=== PATIENT | female | born 1935 | race Caucasian/White ===

== ENCOUNTER 2024-09-09 14:52 | Outpatient (OUT) | payer MEDICARE, SELFPAY ==
--- NOTE | 2024-09-09 17:41 | PM.WCHP ---
Wound Care H&P: HPI History of Present Illness Narrative: The patient is a pleasant 88-year-old female who presents for routine nail care and callus management. The patient has several painful calluses on both feet that limit her ability to ambulate. The patient states she likes to go barefoot around the house. She does not have history of diabetes and has never smoked. Exam Narrative: Exam Narrative: Derm: Dry scab on the right lower leg measuring 1.4 x 0.5 cm. It is surrounded by a dry patch of flaky skin and hemosiderin staining. Skin is diffusely dry. Toenails 1 through 10 are elongated, thickened, and mycotic. Callus formation noted on both third toes at the tips and on the left forefoot. Vascular: Left PT pulses nonpalpable. The right PT pulse is faintly palpable. DP pulses are 1/4 bilaterally. Capillary refill is brisk. Digital hair is absent. Neuro: Monofilament testing revealed absent sensation in 5/5 tested areas on each foot. Vibratory sensation is absent. Achilles deep tendon reflexes are absent bilaterally. MSK: Fat pad atrophy noted bilaterally. No gross deformity otherwise. Assessment and Plan Assessment and Plan (1) Tinea unguium: (2) Diminished pulses in lower extremity: Plan The patient is a pleasant 88-year-old female who presents for routine nail and callus care. She had several calluses on her feet that were pared with a 15 blade without incident. She noted pain relief immediately. Toenails 1 through 10 were sharply debrided with nail nippers without incident. Physical examination is consistent with peripheral neuropathy. She also has a chronic wound on the right lower leg. She was encouraged to use Medihoney and dry sterile dressing. She will follow-up in the wound center in 2 to 3 weeks. Acute Procedures Podiatry Nail Debridement Class B Findings Absent posterior tibial pulse: left Advanced trophic changes as evidenced by any three of the following: decreased hair growth, nail changes (thickening), pigmentary changes (discoloring) and skin texture (thin or shiny) Class C Findings Claudication: No Temperature changes: No Edema: Yes Nail debridement paresthesia (abnormal spontaneous sensations in the feet): No Burning: No Qualifies If: Qualifiers If:: A patient qualifies for nail debridement if they have: 1 class A finding (Q7) 2 class B findings (Q8) OR 1 class B & 2 class C findings in addition to a primary condition (Q9) Nail Procedure Nail Procedure Time out: Yes Nail procedure: other (Nail debridement 1 through 10) Number of affected nails: 10 Location (toes): left and right Procedure successful: Yes Patient tolerated procedure: well and no complications Additional comments: Toenails 1 through 10 were sharply debrided with nail nippers without incident. Calluses on the tips of the third toes bilaterally were pared with a 15 blade and dermal curette without incident. 2 calluses on the left plantar forefoot were pared with a 15 blade and dermal curette without incident.
== END 2024-09-09 14:53 | disposition home or self-care (01) ==
LOC: WC 14:53
PROVIDERS: PCP Family Medicine; Visit Provider Physician Assistant
DX: B35.1 Tinea unguium (principal); R09.89 Other specified symptoms and signs involving the circulatory and respiratory systems; L84 Corns and callosities
CPT/HCPCS: 11056; 11720; 11721

== ENCOUNTER 2024-12-16 13:45 | Outpatient (OUT) | payer MEDICARE, SELFPAY ==
--- NOTE | 2024-12-16 14:34 | P.WCHP_ITS ---
Wound Care H&P: HPI History of Present Illness Narrative: The patient is a pleasant 89-year-old female who presents for routine nail care and callus management. The patient has several painful calluses on both feet that limit her ability to ambulate. The patient states she likes to go barefoot around the house. She does not have history of diabetes and has never smoked. Exam Narrative: Exam Narrative: Derm: Skin is diffusely dry. Toenails 1 through 10 are elongated, thickened, and mycotic. Callus formation noted on both third toes at the tips and on the left forefoot. Hemosiderin staining noted on BLE. Vascular: Left PT pulses nonpalpable. The right PT pulse is faintly palpable. DP pulses are 1/4 bilaterally. Capillary refill is brisk. Digital hair is absent. Neuro: Monofilament testing revealed absent sensation in 5/5 tested areas on each foot. Vibratory sensation is absent. Achilles deep tendon reflexes are absent bilaterally. MSK: Fat pad atrophy noted bilaterally. No gross deformity otherwise. Assessment and Plan Assessment and Plan (1) Tinea unguium: (2) Diminished pulses in lower extremity: Plan The patient is a pleasant 89-year-old female who presents for routine nail and callus care. Calluses on the tips of bilateral 3rd toes were pared with a d ermal curette.. She noted pain relief immediately. Toenails 1 through 10 were sharply debrided with nail nippers without incident. Physical examination is consistent with peripheral neuropathy. Acute Procedures Podiatry Nail Debridement Class B Findings Absent posterior tibial pulse: left Advanced trophic changes as evidenced by any three of the following: decreased hair growth, nail changes (thickening), pigmentary changes (discoloring) and skin texture (thin or shiny) Class C Findings Claudication: No Temperature changes: No Edema: Yes Nail debridement paresthesia (abnormal spontaneous sensations in the feet): No Burning: No Qualifies If: Qualifiers If:: A patient qualifies for nail debridement if they have: 1 class A finding (Q7) 2 class B findings (Q8) OR 1 class B & 2 class C findings in addition to a primary condition (Q9) Nail Procedure Nail Procedure Time out: Yes Nail procedure: other (Nail debridement 1 through 10) Number of affected nails: 10 Location (toes): left and right Procedure successful: Yes Patient tolerated procedure: well and no complications Additional comments: Toenails 1 through 10 were sharply debrided with nail nippers without incident. Calluses on the tips of the third toes bilaterally were pared with a dermal curette without incident.
== END 2024-12-16 13:46 | disposition home or self-care (01) ==
LOC: WC 13:46
PROVIDERS: PCP Family Medicine; Visit Provider Physician Assistant
DX: B35.1 Tinea unguium (principal); R29.898 Other symptoms and signs involving the musculoskeletal system; L60.2 Onychogryphosis; L84 Corns and callosities
CPT/HCPCS: 11721

== ENCOUNTER 2025-02-15 13:51 | Outpatient (OUT) | payer MEDICARE, SELFPAY ==
--- OUTSIDE RECORDS SUMMARY | 2024-06-17 10:00 | XMS_ITS ---
Author Organization The [facility] in [place] Address [address] [place] [address] Care Team Providers Care Hand Marker Name Role Phone None, Unknown or Primary Care Provider Unavailab Cat Santillan Unavailable [phone] REASON FOR VISIT NAIL CARE Encounters Encounter Location Date Provider Diagnosis [facility] (PODIATRY) [address] [place] [address] [place] [address] 06/17/2024 Cat Larsen Plan Of Treatment No Information Progress Notes * Kelsie RICODOB:1935 (89 yo F)Acc No.[id number]:06/17/2024 UNLOCKED PROGRESS NOTE Nurse Visit Patient: Kelsie FRANCO Provider: Eden Larsen PA-C :1935 A ge:88 Y S ex:Female Date:06/17/2024 [facility] Pcp:Unknown or None Check In:01:52 PM ESTCheck O ut:02:31 PM EST Subjective: * Chief Complaints: * 1 . NAIL CARE. * Medical History: Objective: * Vitals: Assessment: Plan: * Treatment: * * Electronic signature of Ivory Larsen PA-C on 02/15/2025 at 01:56 PM EDT Sign off status: Pending Visit Status: C HK (Check Out) * Provider: Eden Larsen PA-C Date: 0 06/17/2024 Generated for Printi ng/Faxing/eTransmitting on: 1 01:56 PM EDT
--- OUTSIDE RECORDS SUMMARY | 2025-02-15 13:56 | XMS_ITS | Encounter Summary ---
Author Organization [facility] Address [id number] [place] [address] Care Team Providers Care Shirt Ironer Supervisor Name Role Phone Meagan Arreaga MD Primary Care Provider [phone] Reason for Visit * Reason Onset Date Comments prefers attending 12/22/2023 Encounter Details Date Type Department Care Team ([facility] Contact Info) Description 12/22[facility]20[facility] [address] [place] [address] Marie Cardenas prefers attending Social History Tobacco Use Types Packs/Day Years Used Date Smoking Tobacco: Never Smokeless Tobacco: Never Alcohol Use Standard Drinks/Week Comments Yes 0 (1 standard drink = 0.6 oz pur e alcohol) one drink twice a week AUDIT-C Answer Date Recorded Frequency of Alcohol Consumption Never 10/22/2018 Average Number of Drinks Not on file 019 Frequency of Binge Drinking Not on file 10/04 Childcare Answer Date Recorded Childcare Unknown 10/14/2018 Employment Answer Date Recorded Employment Unknown 10/14/2018 Hunger Screening Answer Date Recorded Within the past 12 months we worried whether our food would run out before we got money to buy more. Never True 10/18/2023 Within the past 12 months th e food we bought just didn't last and we didn't have money to get more. Never True 10/18/2023 Purpose - Life Answer Date Recorded Purpose and direction in life Unknown Comments No Sex and Gender Information Value Date Recorded Sex Assigned at Not on file Legal Sex Female 11:51 AM EDT Gender Identity Not on file Sexual Orientation Not on file documented as of this encounter Miscellaneous Notes * Telephone Encounter - Marie Cardenas - 12/22/2023 3:37 PM EDT Patient would like to be seen by Dr. De León and not Luis Armando Sorto documented in this encounter Plan of Treatment Upcoming Encounters Date Type Department Care Team (Late st Contact Info) Description 03/07/2025 1:30 PM EST Office Visit [facility] [address] [place] [address] Arabella Garcia, IRONWORKER WIRE FENCE ERECTOR-DIAMOND FINISHING SUPERVISOR [address] [place] [id number] Glory Sy PA-C [address] [place] [address] documented as of this encounter Visit Diagnoses Not on filedocumented in this encounter Additional Health Concerns Infection Onset Date Last Indicated Resolved Time COVID-19 Rule-Out 04/26/2024 04/26/2024 04/26/2024 6:32 PM EST documented as of this encounter Care Teams Shirt Ironer Supervisor Relationship Specialty Start Date End Date Meagan Arreaga MD [address] [place], [place] [id number] PCP - General Family Medicine 10/22/18 documented as of this encounter
--- OUTSIDE RECORDS SUMMARY | 2025-02-15 13:56 | XMS_ITS | Encounter Summary ---
Author Organization [facility] Address [address] [place] [place] [address] Care Team Providers Care Fiber Designer Name Role Phone Meagan Arreaga MD Primary Care Provider [phone] Michelle Alonso FIELD SALES SPECIALIST Unavailable [phone] Michelle Alonso FIELD SALES SPECIALIST Unavailable [phone] Encounter Details Date Type Department Care Team (Late st Contact Info) Description 11/13/2022 [facility] [address] [place] [address] Fede Smiley NP [address] [place] [address] Social History Tobacco Use Types Packs/Day Years Used Date Smoking Tobacco: Never Smokeless Tobacco: Never Tobacco Cessation:Counseling Given: Not Answered Alcohol Use Standard Drinks/Week Comments Not Currently 0 (1 standard drink = 0.6 oz pur e alcohol) caffeine: 1-2 cups per day Comments Unknown Sex and Gender Information Value Date Recorded Sex Assigned at Not on file Legal Sex Female 8:27 PM EDT Gender Identity Not on file Sexual Orientation Not on file documented as of this encounter Plan of Treatment Not on file documented as of this encounter Visit Diagnoses Not on filedocumented in this encounter Care Teams Fiber Designer Relationship Specialty Start Date End Date Meagan Arreaga MD [address] [place] [place] [address] PCP - General Family Medicine 09/20/22 Michelle Alonso NP [address] [place] [address] PCP - Ben EMERY 05/05/23 Michelle Alonso NP [address] [place], [place] [id number] Nurse Practitioner Family Medicine 09/20/22 documented as of this encounter
--- OUTSIDE RECORDS SUMMARY | 2025-02-15 13:56 | XMS_ITS | Encounter Summary ---
Author Organization [facility] Address [address] [facility] [place] [address] Care Team Providers Care Market Relationship Manager Name Role Phone Meagan Arreaga MD Primary Care Provider Michelle Alonso MANAGER WATER WASTEWATER Unavailable [phone] Michelle Alonso MANAGER WATER WASTEWATER Unavailable [phone] Encounter Details Date Type Department Care Team (Late st Contact Info) Description 10/04/2022 [facility] [address] [facility] [place] [address] Meagan Arreaga MD [address] [facility] [address] [place], [place] [id number] Social History Tobacco Use Types Packs/Day Years Used Date Smoking Tobacco: Never Assessed Comments Unknown Sex and Gender Information Value Date Recorded Sex Assigned at Not on file Legal Sex Female 8:27 PM EDT Gender Identity Not on file Sexual Orientation Not on file documented as of this encounter Plan of Treatment Not on file documented as of this encounter Visit Diagnoses Not on filedocumented in this encounter Care Teams Market Relationship Manager Relationship Specialty Start Date End Date Meagan Arreaga MD [address] [facility] [address] [place] [id number] PCP - General Family Medicine 09/20/22 Michelle Alonso NP [address] [place] [address] PCP - Ben EMERY 05/05/23 Michelle Alonso NP [address] [place], [place] [id number] Nurse Practitioner Family Medicine 09/20/22 documented as of this encounter
--- OUTSIDE RECORDS SUMMARY | 2025-02-15 13:56 | XMS_ITS | Encounter Summary ---
Author Organization [facility] Address [address] [facility] [place] [address] Care Team Providers Care Antenna Design Engineer Name Role Phone Meagan Arreaga MD Primary Care Provider [phone] Michelle Alonso OTORHINOLARYNGOLOGIST Unavailable [phone] Michelle Alonso OTORHINOLARYNGOLOGIST Unavailable [phone] Encounter Details Date Type Department Care Team (Late st Contact Info) Description 10/31/2022 [facility] [address] [place] [address] Meagan Arreaga MD [address] [place] [address] Social History Tobacco Use Types Packs/Day Years Used Date Smoking Tobacco: Never Smokeless Tobacco: Never Alcohol Use Standard Drinks/Week Comments Yes 0 (1 standard drink = 0.6 oz pur e alcohol) Comments Unknown Sex and Gender Information Value Date Recorded Sex Assigned at Not on file Legal Sex Female 8:27 PM EDT Gender Identity Not on file Sexual Orientation Not on file documented as of this encounter Plan of Treatment Not on file documented as of this encounter Visit Diagnoses Not on filedocumented in this encounter Care Teams Antenna Design Engineer Relationship Specialty Start Date End Date Meagan Arreaga MD [address] [place] [address] PCP - General Family Medicine 09/20/22 Michelle Alonso NP [address] [facility] [place] [address] PCP - Ben EMERY 05/05/23 Michelle Alonso NP [address] [facility] [place] [address] Nurse Practitioner Family Medicine 09/20/22 documented as of this encounter
--- OUTSIDE RECORDS SUMMARY | 2025-02-15 13:56 | XMS_ITS | Encounter Summary ---
Author Organization [facility] Address [address] [facility] [place] [address] Care Team Providers Care Documentation Engineer Name Role Phone Meagan Arreaga MD Primary Care Provider [phone] Michelle Alonso BIOMETRICS TECHNICIAN Unavailable [phone] Michelle Alonso BIOMETRICS TECHNICIAN Unavailable [phone] Encounter Details Date Type Department Care Team (Late st Contact Info) Description 10/10/2022 [facility] [address] [facility] [place] [address] Meagan Arreaga MD [address] [facility] [address] [place], [place] [phone] Social History Tobacco Use Types Packs/Day Years [...] on filedocumented in this encounter Care Teams Documentation Engineer Relationship Specialty Start Date End Date Meagan Arreaga MD [address] [facility] [address] [place] [id number] PCP - General Family Medicine 09/20/22 Michelle Alonso NP [address] [place] [address] PCP - Ben EMERY 05/05/23 Michelle Alonso NP [address] [place], [place] [phone] Nurse Practitioner Family Medicine 09/20/22 documented as of this encounter
--- OUTSIDE RECORDS SUMMARY | 2025-02-15 13:56 | XMS_ITS | Encounter Summary ---
Author Organization [facility] Address [address] [facility] [place] [address] Care Team Providers Care Utility Sales And Service Manager Name Role Phone Meagan Arreaga MD Primary Care Provider [phone] Michelle Alonso PEACE OFFICER Unavailable [phone] Michelle Alonso PEACE OFFICER Unavailable [phone] Encounter Details Date Type Department Care Team (Late st Contact Info) Description 11/01/2022 [facility] [address] [place] [address] Meagan Arreaga MD [address] [place] [address] Social History Tobacco Use Types Packs/Day [...] on filedocumented in this encounter Care Teams Utility Sales And Service Manager Relationship Specialty Start Date End Date Meagan Arreaga MD [address] [place] [address] PCP - General Family Medicine 09/20/22 Michelle Alonso NP [address] [facility] [place] [address] PCP - Ben EMERY 05/05/23 Michelle Alonso NP [address] [facility] [place] [address] Nurse Practitioner Family Medicine 09/20/22 documented as of this encounter
--- OUTSIDE RECORDS SUMMARY | 2025-02-15 13:56 | XMS_ITS | Encounter Summary ---
Author Organization [facility] Address [id number] [address] [place] [address] Care Team Providers Care Water Manager Name Role Phone Meagan Arreaga MD Primary Care Provider [phone] Reason for Referral * Diagnostic Imaging (Routine) - Closed Specialty Diagnoses / Procedures Referred By Contac t Referred To Contact Radiology Diagnoses Subdural hematoma ([facility]) Procedures CT brain with and without contrast Fredrick Jimenez MD [address] [place] [id number] Phone: tel: fax: [address] [phone] Phone: tel: Referral ID Status Reason Start Date Expiration Date Visits Re quested Visits Authorized [id number] Closed 02/06/2022 02/06/2023 1 1 Encounter Details Date Type Department Care Team (Late st Contact Info) Description 02/06/2022 Orders Only [facility] [address] [place] [phone] Bethany Glass, MATILDA Subdural hematoma (Primary Dx) Social History Tobacco Use Types Packs/Day Years [...] Employment Answer Date Recorded Employment Unknown 10/14/2018 Purpose - Life Answer Date Recorded Purpose and direction in life Unknown Comments No Sex and Gender Information Value Date Recorded Sex Assigned at Not on file Legal Sex Female 11:51 AM EDT Gender Identity Not on file Sexual Orientation Not on file documented as of this encounter Plan of Treatment Upcoming Encounters Date Type Department Care Team (Late st Contact Info) Description 03/07/2025 1:30 PM EST Office Visit [facility] [address] [place] [phone] Arabella Garcia, RESIDENTIAL PROPERTY CONSULTANT-WORLD DESIGNER [address] [place] [phone] Glory Sy PA-C [address] [place] [address] documented as of this encounter Results * CT brain with and without contrast (02/21/2022 1:46 PM EDT) Anatomical Region Laterality Modality Head, Head and Neck, Neuro Covera N/A Computed Tomography 02/22/2022 1:23 PM EDT Narrative 02/22/2022 1:29 PM EDT HISTORY: An 86-year-old female with the history of the left-sided subdural hematoma following fall in December 2021. Follow-up examination. EXAM/TECHNIQUE: Multidetector spiral CT scan of brain is performed without and with intravenous contrast administration.. Multiplanar reconstruction images are reformatted. COMPARISON: Comparison is made with CT scans of the brain of 12/24/2021 and 01/03/2022. FINDINGS: The ventricular system is normal in size and configuration for the patient's age. There is a mild degree of generalized atrophy. There is normal differentiation of peres and white matters. There is no evidence of recent intracranial hemorrhage or acute pathology. There is a encephalomalacia involving the right occipital lobe consistent with sequelae of the prior infarction, hemorrhage or infection. The cerebellum and brainstem are unremarkable.No evidence of mass effect or midline shift of the structure. There has been complete resolution of the left-sided subdural hematomas involving the parietal temporal lobes and parasagittal interhemispheric frontal region. No new hemorrhage is identified. Postcontrast examination reveals no evidence of abnormal enhancing pathology. Both internal carotid and vertebrobasilar arteries are patent. The calvarium is intact. The visualized paranasal sinuses and mastoid air cells are clear. IMPRESSION: 1. Interval complete resolution of left-sided subdural hematomas since prior study of December 2021. 2. 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 3. No evidence of recent intracranial hemorrhage or acute pathology. 4. No abnormal enhancing pathology seen. 5. Cortical atrophy. All CT scans at this facility use dose modulation, iterative reconstruction, and/or weight based dosing when appropriate to reduce radiation dose to as low as reasonably achievable. Finalized by Sahil aMrie MD on 02/22/2022 1:29 PM Procedure Note Sahil Marie MD - 02/22/2022 HISTORY: An 86-year-old female with the history of the left-sidedsubdural hematoma following fall in December 2021. Follow-up examination. EXAM/TECHNIQUE: Multidetector spiral CT scan of brain is performedwithout and with intravenous contrast administration.. Multiplanarreconstruction images are reformatted. COMPARISON: Comparison is made with CT scans of the brain of 12/24/2021nd 01/03/2022. FINDINGS: The ventricular system is normal in size and configuration forthe patient's age. There is a mild degree of generalized atrophy. Thereis normal differentiation of peres and white matters. There is no evidence of recent intracranial hemorrhage or acutepathology. There is a encephalomalacia involving the right occipital lobe consistentwith sequelae of the prior infarction, hemorrhage or infection. The cerebellum and brainstem are unremarkable.No evidence of mass effector midline shift of the structure. There has been complete resolution of the left-sided subdural hematomasinvolving the parietal temporal lobes and parasagittal interhemisphericfrontal region. No new hemorrhage is identified. Postcontrast examination reveals no evidence of abnormal enhancingpathology. Both internal carotid and vertebrobasilar arteries are patent. The calvarium is intact. The visualized paranasal sinuses and mastoid air cells are clear. IMPRESSION: 1. Interval complete resolution of left-sided subdural hematomas sinceprior study of December 2021. 2. 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 3. No evidence of recent intracranial hemorrhage or acute pathology. 4. No abnormal enhancing pathology seen. 5. Cortical atrophy. All CT scans at this facility use dose modulation, iterativereconstruction, and/or weight based dosing when appropriate to reduceradiation dose to as low as reasonably achievable. Finalized by Sahil Marie MD on 02/22/2022 1:29 PM us Fredrick Jimenez MD IMG CT ORDERABLES Final R esult documented in this encounter Visit Diagnoses Diagnosis Subdural hematoma (CMS-HCC)- Primary Subdural hemorrhage Subdural hematoma (CMS-HCC) Subdural hemorrhage documented in this encounter Additional Health Concerns Infection Onset Date Last Indicated Resolved Time COVID-19 Rule-Out 04/26/2024 04/26/2024 04/26/2024 6:32 PM EST documented as of this encounter Care Teams Water Manager Relationship Specialty Start Date End Date Meagan Arreaga MD [address] [place] [address] PCP - General Family Medicine 10/22/18 documented as of this encounter
--- OUTSIDE RECORDS SUMMARY | 2025-02-15 13:56 | XMS_ITS | Clinical Summary ---
Author Organization [employer] tem Address [facility] [id number] [address] [place] [address] Care Team Providers Care Community Service Officer Coordinator Name Role Phone Meagan Arreaga MD Primary Care Provider [phone] Allergies Active Allergy Reactions Criticality Noted Date Comments Sulfamethoxazole-Trimethoprim Nausea High 2018 Penicillins Hives High 11/02/2018 Medications escitalopram (LEXAPRO) 20 mg tablet Take 1 tablet (20 mg total) by mouth in the morning. Active cholecalciferol, vitamin D3, (VITAMIN D3) 25 mcg (1,000 unit) capsule Take 1 capsule (1,000 Units total) by mouth in the morning. Active acetaminophen (TYLENOL EXTRA STRENGTH) 500 mg tablet Take 1 tablet (500 mg total) by mouth every 6 (six) hours as needed for pain. 30 tablet 2 Active ferrous sulfate 325 (65 FE) mg tablet Take 1 tablet (325 mg total) by mouth in the morning and 1 tablet (325 mg total) in the evening. Take with meals. 60 tablet 2 3 Active aspirin 81 mg Take 1 tablet (81 mg total) by mouth in the morning. Active lisinopriL (PRINIVIL,ZESTRIL ) 10 mg tablet Take 1 tablet (10 mg total) by mouth in the morning. 30 tablet 1 4 Active busPIRone (BUSPAR) 5 mg tablet Take 1 tablet (5 mg total) by mouth in the morning and 1 tablet (5 mg total) before bedtime. Active FLUTICASONE PROPIONATE NASL Administer into each nostril. Active pseudoephedrine/a cetaminophen (SINUS HEADACHE DEGONGESTANT ORAL) Take by mouth. Activ e rosuvastatin (CRESTOR) 10 mg tablet Take 1 tablet (10 mg total) by mouth in the morning. Active vit A/vit C/vit E/zinc/copper (PRESERVISION AREDS ORAL) Take by mouth. Act abdias ascorbic acid, vitamin C, (VITAMIN C) 1000 mg tablet Take 1 tablet (1,000 mg total) by mouth in the morning. Active B complex-vitamin C-folic acid (NEPHROCAP) 1 mg capsule Take 1 capsule by mouth in the morning. Active lyucmyxg-mcuu-EV- calcium &mins (THERAGRAN-M) 9 mg iron-400 mcg tablet Take 1 tablet by mouth in the morning. Active coffee xt/phosphatidyl serine (NEURIVA ORIGINAL ORAL) Take by mouth. Active amLODIPine (NORVASC) 2.5 mg tablet Take 1 tablet (2.5 mg total) by mouth in the morning. 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 Take with meals. 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 Reyna. 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 Hypertension Resolved Problems Problem Noted Date Diagnosed Date Resolved Date Thrombocytopenia 04/27/2024 09/02/2024 Closed fracture of right hip , initial encounter 05/29/2022 05/31/2022 Chronic systolic congestive heart failure 05/10/2019 09/18/2022 STEMI (ST elevation myocardial infarction) 11/02/2018 09/02/2024 Encounters Date Type Department Care Team Description 11/21/2024 11:49 AM EDT - 11/21/2024 2:49 PM EDT Emergency [facility] - Emergency [address] [place] [address] Anoop Darling DO Dementia, unspecified dementia severity, unspecified dementia type, unspecified whether behavioral, psychotic, or mood disturbance or anxiety ([facility]) (Primary Dx) Discharge Disposition: Home 11/21/2024 Travel from Last 3 Months Immunizations Immunization Administration Dates Next Due Influenza High Dose Preservative Free IM 019 Influenza, High-dose, Quadrivalent 02/15/2021, Influenza, Injectable, quadrivalent (PF) 018 Pneumococcal Conjugate 13-Valent 04/24/2020 Pneumococcal Polysaccharide 04/16/2018 Td (adult), 5 Lf tetanus tox oid, preservative free, adsorbed 12/31/2018 Tdap 12/23/2021 Family History Medical History Relation Name Comments Kidney failure Father Heart disease Maternal Grandfather Tuberculosis Mother Relation Name Status Comments Father Maternal Grandfather Mother Social History Tobacco Use Types Packs/Day Years Used Date Smoking Tobacco: Never Smokeless Tobacco: Never Tobacco Cessation:Counseling Given: Not Answered Alcohol Use Standard Drinks/Week Comments Yes 0 (1 standard drink = 0.6 oz pur e alcohol) one drink twice a week [facility] Utilities Answer Date Recorded In the past 12 months has th e electric, gas, oil, or water company threatened to shut off services in your home? No 04/26/2024 AUDIT-C Answer Date Recorded Frequency of Alcohol Consumption Never 10/22/2018 Average Number of Drinks Not on file 06/20/2 019 Frequency of Binge Drinking Not on file 10/04 PRAPARE - Transportation Answer Date Re corded In the past 12 months, has l ack of transportation kept you from medical appointments or from getting medications? No 04/05 In the past 12 months, has l ack of transportation kept you from meetings, work, or from getting things needed for daily living? No 04/26/2024 Housing Instability Answer Date Recorde d Are you worried or concerned that in the next two months you may not have stable housing that you own, rent or stay in as a part of a household? No 04/26/2024 Childcare Answer Date Recorded Childcare Unknown 10/14/2018 Employment Answer Date Recorded Employment Unknown 10/14/2018 Hunger Screening Answer Date Recorded Within the past 12 months we worried whether our food would run out before we got money to buy more. Never True 11/21/2024 Within the past 12 months th e food we bought just didn't last and we didn't have money to get more. Never True 11/21/2024 Purpose - Life Answer Date Recorded Purpose and direction in life Unknown Comments No Sex and Gender Information Value Date Recorded Sex Assigned at Not on file Legal Sex Female 11:51 AM EDT Gender Identity Not on file Sexual Orientation Not on file Last Filed Vital Signs Vital Sign Reading Time Taken Comments Blood Pressure 169/89 11/21/2024 2:32 PM EDT Pulse 66 11/21/2024 11:56 AM EDT Temperature 36.6 C (97.9 F) 11/21/2024 11:56 AM EDT Respiratory Rate 18 11/21/2024 11:56 AM EDT Oxygen Saturation 100% 11/21/2024 2:15 PM EDT Inhaled Oxygen Concentration - - Weight 52.2 kg (115 lb) 11/21/2024 11:56 AM EDT Height 157.5 cm (5' 2 ) 11/21/2024 11:56 AM EDT Body Mass Index 21.03 11/21/2024 11:56 AM EDT Plan of Treatment Upcoming Encounters Date Type Department Care Team (Late st Contact Info) Description 03/07/2025 1:30 PM EST Office Visit [facility] [address] [place] [phone] Arabella Garcia, COUNTER HOP-INTERNATIONAL OPERATIONS MANAGER [address] [place] [phone] Glory Sy PA-C [address] [place] [address] Health Maintenance Due Date Last Done Comments Depression Screening 1947 Zoster (Shingles) Vaccine (1 of 2) 09/28/1985 Fall Risk Screening 09/28/2000 COVID-19 Vaccine (2023-2 5 season) 2025 04/14/2024, 02/18/2023, 08/15/2021, Additional history exists Influenza Vaccine 01/03/2025 01/14/2024, , 01/30/2022, Additional history exists Tobacco Screening 11/21/2025 11/21/2024 DTaP,Tdap and Td Vaccines (3 - Td or Tdap) 12/24/2031 12/23/2021, 12/31/2018 Goals Goal Patient Goal Type Associated Problems Recent Progress Patient-Stated? Author home per patient & her daughter Alma Leon Yes Varsha Ward LSW Note: Evaluation of progress towards goal: under assessment; goal of home going Medical Devices Implanted Type Area Human Relations Teacher Device Identifier Shelf Expiration Date Model / Serial / Lot Lens Iol Ultrasert 23.0d - [id number] - [id number] Implanted:Qty: 1 on 01/09/2023 by Jessica Rhodes MD at [facility] Lens Left: Eye [employer] 03/06/2025 [id number] 23.0 / [id number] / NA Lens Iol Ultrasert 23.0d - [id number] - [id number] Implanted:Qty: 1 on 01/30/2023 by Jessica Rhodes MD at [facility] Lens Right: Eye [employer] 04/22/2025 [id number] 23.0 / [id number] / NA Screw Bn 90mm 16mm 6.5mm 7.9mm 2.9mm St Slf Drl Cnn Hmsphr - Sna - [id number] Implanted:Qty: 1 on 05/29/2022 by Arpan Gallo DO at [facility] Screw Right: Hip [employer] 05/04/2030 [id number] / NA / NA Screw Bn 85mm 16mm 6.5mm 7.9mm 2.9mm St Slf Drl Cnn Hmsphr H - Sna - [id number] Implanted:Qty: 2 on 05/29/2022 by Arpan Gallo, DO at [facility] Screw Right: Hip [employer] 05/03/2030 208.412 / NA / NA Procedures Procedure Name Priority Date/Time Associated Diagnosis Comments POCT NURSING URINE MACROSCOPIC UA Routine 11/21/2024 1:37 PM EDT ER EXTRA URINE MARBLE STAT 11/21/2024 1:24 PM EDT ER EXTRA URINE CULTURE STAT 11/21/2024 1:24 PM EDT ER EXTRA URINE STAT 11/21/2024 1:24 PM EDT MAGNESIUM STAT 11/21/2024 12:52 PM EDT BASIC METABOLIC PANEL STAT 11/21/2024 12:52 PM EDT CBC WITH AUTO DIFFERENTIAL STAT 11/21/2024 12:52 PM EDT EXTRA TUBES BLUE TOP Routine 11/21/2024 12:51 PM EDT EXTRA TUBES Routine 11/21/2024 12:51 PM EDT from Last 3 Months Results * (ABNORMAL) POCT Nursing Urine Macroscopic UA (11/21/2024 1:37 PM EDT) POC Urine Specific Nora 1.015 1.010, 1.015, 1.020, 1.025 11/21/2024 1:29 PM EDT [facility] POC Urine Leukocyte Esterase Negative Negative 11/21/2024 1:29 PM EDT [facility] POC Urine Nitrite Negative Negative 11/21/2024 1:29 PM EDT [facility] POC Urine pH 7.0 5.0, 6.0, 6.5, 7.0, 7.5, 8.0, 8.5, 5.5 11/21/2024 1:29 PM EDT [facility] POC Urine Protein Negative Negative 11/21/2024 1:29 PM EDT [facility] POC Urine Glucose Negative Negative 11/21/2024 1:29 PM EDT [facility] POC Urine Ketones Negative Negative 11/21/2024 1:29 PM EDT [facility] POC Urine Urobilinogen 0.2 E.U./dL 11/21/2024 1:29 PM EDT [facility] POC Urine Bilirubin Negative Negative 11/21/2024 1:29 PM EDT [facility] POC Urine Blood/HGB Trace(A) Negative 11/21/2024 1:29 PM EDT [facility] Urine 11/21/2024 1:37 PM EDT 11/21/2024 1:29 PM EDT us Anoop Darling DO POINT OF CARE TEST ORDERABLES Final Result [facility] [address] [place] [address]. [place] [address], [place] * Extra Urine Trinidad (11/21/2024 1:24 PM EDT) Extra Tube Auto Resulted 11/21/2024 3:01 PM EDT [facility] Urine Urine specimen collection, clean catch / Unknown 11/21/2024 1:24 PM EDT 11/21/2024 1:55 PM EDT us Anoop Trager DO URINE ORDERABLES Final Result Performing Organization Address City/[facility]/ZIP Co de Phone Number [address] [place] [address], [place] * Extra Urine Culture (11/21/2024 1:24 PM EDT) Extra Tube Auto Resulted 11/21/2024 3:01 PM EDT [facility] Urine Urine specimen collection, clean catch / Unknown 11/21/2024 1:24 PM EDT 11/21/2024 1:55 PM EDT us Anoop Trager DO URINE ORDERABLES Final Result Performing Organization Address [facility] Co de Phone Number [address] [place] [address], [place] * Extra Urine (11/21/2024 1:24 PM EDT) Extra Tube Auto Resulted 11/21/2024 3:01 PM EDT [facility] Urine Urine specimen collection, clean catch / Unknown 11/21/2024 1:24 PM EDT 11/21/2024 1:55 PM EDT us Anoop Trager DO URINE ORDERABLES Final Result Performing Organization Address City[facility] Co de Phone Number [address] [place] [address], [place] * (ABNORMAL) CBC auto differential (11/21/2024 12:52 PM EDT) WBC 4.9 4 - 11 x10E9/L 11/21/2024 12:59 PM EDT [facility] RBC Count 4.48 3.8 - 5.2 X10E12/L 11/21/2024 12:59 PM EDT [facility] Hemoglobin 14.2 11.7 - 15.5 g/dL 11/21/2024 12:59 PM EDT [facility] Hematocrit 41.2 35 - 47 % 11/21/2024 12:59 PM EDT [facility] MCV 92 80 - 100 fL 11/21/2024 12:59 PM EDT [facility] MCH 31.8 27 - 34 pg 11/21/2024 12:59 PM EDT [facility] MCHC 34.5 32 - 36 g/dL 11/21/2024 12:59 PM EDT [facility] RDW 13.2 11.5 - 15 % 11/21/2024 12:59 PM EDT [facility] Platelet Count 148(L) 150 - 450 X10E9/L 11/21/2024 12:59 PM EDT [facility] MPV 7.8 7 - 12 fL 11/21/2024 12:59 PM EDT [facility] Neutrophils % 72.8 % 11/21/2024 12:59 PM EDT [facility] Lymphocytes % 14.6 % 11/21/2024 12:59 PM EDT [facility] Monocytes % 9.2 % 11/21/2024 12:59 PM EDT [facility] Eosinophils % 2.5 % 11/21/2024 12:59 PM EDT [facility] Basophils % 0.9 % 11/21/2024 12:59 PM EDT [facility] Neutrophils Absolute (A) 3.5 1.5 - 6.6 10*3/uL 11/21/2024 12:59 PM EDT [facility] Lymphocytes Absolute 0.7(L) 1.0 - 3.5 10*3/uL 11/21/2024 12:59 PM EDT [facility] Monocytes Absolute 0.4 0.0 - 0.9 10*3/uL 11/21/2024 12:59 PM EDT [facility] Eosinophils Absolute 0.1 0.0 - 0.4 10*3/uL 11/21/2024 12:59 PM EDT [facility] Basophils Absolute 0.0 0.0 - 0.2 10*3/uL 11/21/2024 12:59 PM EDT [facility] Differential Type AUTOMATED DIFFERENTIAL 11/21/2024 12:59 PM EDT [facility] Blood Venous blood / Unknown Venipuncture / Unknown 11/21/2024 12:52 PM EDT 11/21/2024 12:55 PM EDT [facility] LAB BLOOD ORDERABLES Final Res ult Performing Organization Address City/[facility]/ZIP Co de Phone Number [address] [place] [address], [place] * Magnesium (11/21/2024 12:52 PM EDT) MAGNESIUM 2.2 1.8 - 2.6 mg/dL 11/21/2024 1:15 PM EDT [facility] Blood Venous blood / Unknown Venipuncture / Unknown 11/21/2024 12:52 PM EDT 11/21/2024 12:55 PM EDT [facility] LAB BLOOD ORDERABLES Final Res ult Performing Organization Address [facility] Co de Phone Number [address] [place] [address], [place] * Basic Metabolic Panel (11/21/2024 12:52 PM EDT) SODIUM 143 134 - 146 mmol/L 11/21/2024 1:15 PM EDT [facility] POTASSIUM 4.1 3.5 - 5.0 mmol/L 11/21/2024 1:15 PM EDT [facility] CHLORIDE 109 98 - 109 mmol/L 11/21/2024 1:15 PM EDT [facility] CARBON DIOXIDE 26 22 - 32 mmol/L 11/21/2024 1:15 PM EDT [facility] ANION GAP 8 5 - 15 mmol/L 11/21/2024 1:15 PM EDT [facility] BLOOD UREA NITROGEN 14 5 - 27 mg/dL 11/21/2024 1:15 PM EDT [facility] CREATININE 0.53 0.40 - 1.00 mg/dL 11/21/2024 1:15 PM EDT [facility] Comment:METHOD TRACEABLE TO IDMS STANDARD GLUCOSE 92 65 - 99 mg/dL 11/21/2024 1:15 PM EDT [facility] CALCIUM 9.3 8.5 - 10.5 mg/dL 11/21/2024 1:15 PM EDT [facility] EGFR Non-Race Dependent 88 >=60 ml/min/1.7 3sq.m 11/21/2024 1:15 PM EDT [facility] Comment: eGFR not reported due to non-numeric value for Creatinine. Reported eGFR is based on the CKD-EPI 2020 equation that does not use a race coefficient. Blood Venous blood / Unknown Venipuncture / Unknown 11/21/2024 12:52 PM EDT 11/21/2024 12:55 PM EDT [employer] DO LAB BLOOD ORDERABLES Final Res ult Performing Organization Address City[facility]/ZIP Co de Phone Number [address] [place] [address], * Light Blue Top (11/21/2024 12:51 PM EDT) Extra Tube Auto Resulted 11/21/2024 2:01 PM EDT [facility] Blood Venous blood / Unknown 11/21/2024 12:51 PM EDT 11/21/2024 12:56 PM EDT [employer] LAB BLOOD ORDERABLES Final Res ult Performing Organization Address [facility]/ZIP Co de Phone Number [address] [place] [address], from Last 3 Months Insurance [facility] Advance Directives * Full Code (Latest Code Status on File) Date Activated Date Inactivated Comments 04/26/2024 8:37 PM 05/02/2024 3:40 PM * Full Code Date Activated Date Inactivated Comments 05/29/2022 2:38 PM 05/31/2022 7:58 PM * Full Code Date Activated Date Inactivated Comments 12/23/2021 6:37 PM 12/28/2021 1:00 AM Care Teams Community Service Officer Coordinator Relationship Specialty Start Date End Date Meagan Arreaga MD [address] [place] [place] [address] PCP - General Family Medicine 10/22/18
--- OUTSIDE RECORDS SUMMARY | 2025-02-15 13:56 | XMS_ITS | Encounter Summary ---
Author Organization [facility] Address [address] [facility] [place] [address] Care Team Providers Care Contracts Manager Name Role Phone Meagan Arreaga MD Primary Care Provider [phone] Michelle Alonso PROGRAM WRITER Unavailable [phone] Michelle Alonso PROGRAM WRITER Unavailable [phone] Encounter Details Date Type Department Care Team (Late st Contact Info) Description 10/10/2022 [facility] [address] [facility] [place] [address] Meagan Arreaga MD [address] [facility] [place] [place], [place] [id number] Social History Tobacco Use Types Packs/Day Years [...] on filedocumented in this encounter Care Teams Contracts Manager Relationship Specialty Start Date End Date Meagan Arreaga MD [address] [facility] [address] [place] [id number] PCP - General Family Medicine 09/20/22 Michelle Alonso NP [address] [place] [address] PCP - Ben EMERY 05/05/23 Michelle Alonso NP [address] [place], [place] [id number] Nurse Practitioner Family Medicine 09/20/22 documented as of this encounter
--- OUTSIDE RECORDS SUMMARY | 2025-02-15 13:57 | XMS_ITS | Encounter Summary ---
Author Organization [facility] tem Address [id number] [address] [place] [address] Care Team Providers Care Roller Painter Name Role Phone Meagan Arreaga MD Primary Care Provider [phone] Encounter Details Date Type Department Care Team (Late Contact Info) Description 10/12/2020 Telephone [facility] [address] [place] [phone] Stephanie Kate, RN Social History Tobacco Use Types Packs/Day Years Used Date Smoking Tobacco: Never Smokeless Tobacco: Never Alcohol Use Standard Drinks/Week Comments Yes 0 (1 standard drink = 0.6 oz pur e alcohol) AUDIT-C Answer Date Recorded Frequency of Alcohol [...] on file Sexual Orientation Not on file COVID-19 Exposure Response Date Recorded In the last month, have you been in contact with someone who was confirmed or suspected to have Coronavirus / COVID-19? No / Unsure 10/11/2020 1:05 PM EDT documented as of this encounter Plan of Treatment Upcoming Encounters Date Type Department Care Team (Late Contact Info) Description 03/07/2025 1:30 PM EST Office Visit [facility] [address] [place] [phone] Arabella Garcia, WALL TAPER HELPER-CHIEF EXECUTIVE OR MANAGING DIRECTOR [address] [place] [phone] Glory Sy PA-C [address] [place], [place] [id number] documented as of this encounter Visit Diagnoses Not on filedocumented in this encounter Additional Health Concerns Infection Onset Date Last Indicated Resolved Time COVID-19 Rule-Out 04/26/2024 04/26/2024 04/26/2024 6:32 PM EST documented as of this encounter Care Teams Roller Painter Relationship Specialty Start Date End Date Meagan Arreaga MD [address] [place] [address] PCP - General Family Medicine 10/22/18 documented as of this encounter
--- OUTSIDE RECORDS SUMMARY | 2025-02-15 13:57 | XMS_ITS | Encounter Summary ---
Author Organization [facility] tem Address [id number] [address] [place] [address] Care Team Providers Care Textile Knitter Name Role Phone Meagan Arreaga MD Primary Care Provider [phone] Encounter Details Date Type Department Care Team (Late Contact Info) Description 04/26/2020 Orders Only [facility] [address] [place] [address] External, Scanning Provider Social History Tobacco Use Types Packs/Day Years [...] Employment Answer Date Recorded Employment Unknown 10/14/2018 Comments No Sex and Gender Information Value [...] Cardiology [address] [place] [address] Arabella Garcia, RN RELIEF CHARGE-REHABILITATION WORKER [address] [place] [address] Glory Sy PA-C [address] [place] [address] documented as of this encounter Procedures Procedure Name Priority Date/Time Associated Diagnosis Comments LIPID PROFILE Routine 04/25/2020 documented in this encounter Results * Lipid profile (04/25/2020) External Cholesterol 118 MANUALLY TRANSCRIBED RESULTS External Cholesterol:Hdl 2 MANUALLY TRANSCRIBED RESULTS External Hdl Cholesterol 63 MANUALLY TRANSCRIBED RESULTS External Ldl (Calc) 41 MANUALLY TRANSCRIBED RESULTS External Triglycerides 70 MANUALLY TRANSCRIBED RESULTS External Very Low Lipoprotein 14 MANUALLY TRANSCRIBED RESULTS us Scanning Provider External LAB BLOOD ORDERABLES Edited Result - Final MANUALLY TRANSCRIBED RESULTS documented in this encounter Visit Diagnoses Not on filedocumented in this encounter Additional Health Concerns Infection Onset Date Last Indicated Resolved Time COVID-19 Rule-Out 04/26/2024 04/26/2024 04/26/2024 6:32 PM EST documented as of this encounter Care Teams Textile Knitter Relationship Specialty Start Date End Date Meagan Arreaga MD [address] [place] [address] PCP - General Family Medicine 10/22/18 documented as of this encounter
--- OUTSIDE RECORDS SUMMARY | 2025-02-15 13:57 | XMS_ITS | Encounter Summary ---
Author Organization [facility] tem Address [facility] [id number] [address] [place] [address] Care Team Providers Care City Council Member Name Role Phone Meagan Arreaga MD Primary Care Provider [phone] Encounter Details Date Type Department Care Team (Late Contact Info) Description 09/04/2021 Telephone [facility] [address] [place] [address] Stephanie Kate, RN Social History Tobacco Use [...] Exposure Response Date Recorded In the last 10 days, have yo u been in contact with someone who was confirmed or suspected to have Coronavirus/COVID-19? Unable to assess 09/07/2021 11:08 AM EDT documented as of this encounter Plan of Treatment Upcoming Encounters Date Type Department Care Team (Late Contact Info) Description 03/07/2025 1:30 PM EST Office Visit [facility] [address] [place] [phone] Arabella Garcia, FOOD SAFETY SPECIALIST-DIRECTOR OF EMERGENCY NURSING [address] [place] [address] Glory Sy PA-C [address] [place], [place] [address] documented as of this encounter Visit Diagnoses Not on filedocumented in this encounter Additional Health Concerns Infection Onset Date Last Indicated Resolved Time COVID-19 Rule-Out 04/26/2024 04/26/2024 04/26/2024 6:32 PM EST documented as of this encounter Care Teams City Council Member Relationship Specialty Start Date End Date Meagan Arreaga MD [address] [place] [address] PCP - General Family Medicine 10/22/18 documented as of this encounter
--- OUTSIDE RECORDS SUMMARY | 2025-02-15 13:57 | XMS_ITS | Encounter Summary ---
Author Organization [facility] tem Address [facility] [id number] [address] [place] [address] Care Team Providers Care Lead Refinery Supervisor Name Role Phone Meagan Arreaga MD Primary Care Provider [phone] Encounter Details Date Type Department Care Team (Late Contact Info) Description 09/17/2021 Telephone [facility] [address] [place] [address] Stephanie Kate, RN Social History Tobacco Use [...] was confirmed or suspected to have Coronavirus/COVID-19? No / Unsure 09/19/2021 10:36 AM EDT documented as of this encounter Plan of Treatment Upcoming Encounters Date Type Department Care Team (Late Contact Info) Description 03/07/2025 1:30 PM EST Office Visit [facility] [address] [place] [address] Arabella Garcia, EVENT SERVICES MANAGER-GREENS PLANTER [address] [place] [address] Glory Sy PA-C [address] [place], [place] [address] documented as of this encounter Visit Diagnoses Not on filedocumented in this encounter Additional Health Concerns Infection Onset Date Last Indicated Resolved Time COVID-19 Rule-Out 04/26/2024 04/26/2024 04/26/2024 6:32 PM EST documented as of this encounter Care Teams Lead Refinery Supervisor Relationship Specialty Start Date End Date Meagan Arreaga MD [address] [place] [address] PCP - General Family Medicine 10/22/18 documented as of this encounter
--- OUTSIDE RECORDS SUMMARY | 2025-02-15 13:57 | XMS_ITS | Encounter Summary ---
Author Organization [facility] tem Address [facility] [id number] [address] [place] [address] Care Team Providers Care Tubing Machine Tender Name Role Phone Meagan Arreaga MD Primary Care Provider [phone] Encounter Details Date Type Department Care Team (Late Contact Info) Description 09/07/2021 Telephone [facility] [address] [place] [address] Catalina Maldonado CNA Social History Tobacco Use Types Packs/Day Years [...] Cardiology [address] [place] [address] Arabella Garcia, CLOTH FINISHING RANGE OPERATOR CHIEF-MANGANESE HEATER [address] [place] [address] Glory Sy PA-C [address] [place], [place] [address] documented as of this encounter Visit Diagnoses Not on filedocumented in this encounter Additional Health Concerns Infection Onset Date Last Indicated Resolved Time COVID-19 Rule-Out 04/26/2024 04/26/2024 04/26/2024 6:32 PM EST documented as of this encounter Care Teams Tubing Machine Tender Relationship Specialty Start Date End Date Meagan Arreaga MD [address] [place] [address] PCP - General Family Medicine 10/22/18 documented as of this encounter
--- OUTSIDE RECORDS SUMMARY | 2025-02-15 13:57 | XMS_ITS | Encounter Summary ---
Author Organization [facility] Address [address] [facility] [place] [address] Care Team Providers Care Head Bone Grinder Name Role Phone Meagan Arreaga MD Primary Care Provider [phone] Michelle Alonso SUPERVISOR PASTE MIXING Unavailable Michelle Alonso SUPERVISOR PASTE MIXING Unavailable [phone] Reason for Visit * Reason Comments Med Refill Encounter Details Date Type Department Care Team (Late st Contact Info) Description 11/04/2023 Refill [facility] Family Medicine [address] [facility] [address] [facility] [address] Meagan Arreaga MD [address] [place] [address] Primary hypertension Social History Tobacco Use Types Packs/Day Years Used Date Smoking Tobacco: Never Smokeless Tobacco: Never Alcohol Use Standard Drinks/Week Comments Not Currently 0 (1 standard drink = 0.6 oz pur e alcohol) caffeine: 1 cups per day PHQ-2 Answer Date Recorded Patient Health Questionnaire-2 Score 1 06/27/2023 Comments Unknown Sex and Gender Information Value Date Recorded Sex Assigned at Not on file Legal Sex Female 8:27 PM EDT Gender Identity Not on file Sexual Orientation Not on file documented as of this encounter Plan of Treatment Not on file documented as of this encounter Visit Diagnoses Diagnosis Primary hypertension Unspecified essential hypertension documented in this encounter Additional Health Concerns Assessment Noted Time PHQ-9 Depression Total Score: 6 05/07/20 24 1:00 PM EDT documented as of this encounter Care Teams Head Bone Grinder Relationship Specialty Start Date End Date Meagan Arreaga MD [address] [place], [place] [id number] PCP - General Family Medicine 09/20/22 Michelle Alonso NP [address] [place], [place] [id number] PCP - Ben EMERY 05/05/23 Michelle Alonso NP [address] [place], [place] [phone] Nurse Practitioner Family Medicine 09/20/22 documented as of this encounter
--- OUTSIDE RECORDS SUMMARY | 2025-02-15 13:57 | XMS_ITS | Encounter Summary ---
Author Organization [facility] Address [address] [facility] [place] [address] Care Team Providers Care Human Resources Records Clerk Name Role Phone Meagan Arreaga MD Primary Care Provider [phone] Micehlle Alonso CONSTRUCTION MANAGEMENT INSTRUCTOR Unavailable [phone] Michelle Alonso CONSTRUCTION MANAGEMENT INSTRUCTOR Unavailable [phone] Encounter Details Date Type Department Care Team (Late st Contact Info) Description 09/03/2023 Abstract [facility] [address] [place] [address] Meagan Arreaga MD [address] [place] [address] Social History Tobacco Use Types Packs/Day Years Used Date Smoking Tobacco: Never Smokeless Tobacco: Never Alcohol Use Standard Drinks/Week Comments Not Currently 0 (1 standard drink = 0.6 oz pur e alcohol) caffeine: 1-2 cups per day PHQ-2 Answer Date Recorded [...] filedocumented in this encounter Additional Health Concerns Assessment Noted Time PHQ-9 Depression Total Score: 2 06/27/19 24 3:35 PM EST documented as of this encounter Care Teams Human Resources Records Clerk Relationship Specialty Start Date End Date Meagan Arreaga MD [address] [place], [place] [phone] PCP - General Family Medicine 09/20/22 Michelle Alonso NP [address] [facility], [place] [address] PCP - Ben EMERY 05/05/23 Michelle Alonso, ALIDA [address] [place], [place] [id number] Nurse Practitioner Family Medicine 09/20/22 documented as of this encounter
--- OUTSIDE RECORDS SUMMARY | 2025-02-15 13:57 | XMS_ITS | Encounter Summary ---
Author Organization [facility] tem Address [facility] [id number] [address] [place] [address] Care Team Providers Care Bread Wrapper Operator Name Role Phone Meagan Arreaga MD Primary Care Provider [phone] Encounter Details Date Type Department Care Team (Late Contact Info) Description 10/13/2020 Telephone [facility] [address] [place] [address] aJye Powell RN Social History Tobacco Use Types Packs/Day [...] Cardiology [address] [place] [address] Arabella Garcia, HARDWARE ENGINEERING MANAGER-LEADERSHIP RECRUITER [address] [place] [address] Glory Sy PA-C [address] [place] [address] documented as of this encounter Visit Diagnoses Not on filedocumented in this encounter Additional Health Concerns Infection Onset Date Last Indicated Resolved Time COVID-19 Rule-Out 04/26/2024 04/26/2024 04/26/2024 6:32 PM EST documented as of this encounter Care Teams Bread Wrapper Operator Relationship Specialty Start Date End Date Meagan Arreaga MD [address] [place] [address] PCP - General Family Medicine 10/22/18 documented as of this encounter
--- OUTSIDE RECORDS SUMMARY | 2025-02-15 13:57 | XMS_ITS | Encounter Summary ---
Author Organization [facility] tem Address [facility] [id number] [address] [place] [address] Care Team Providers Care Interior Design Director Name Role Phone Meagan Arreaga MD Primary Care Provider [phone] Encounter Details Date Type Department Care Team (Late Contact Info) Description 10/05/2020 Telephone [facility] [address] [place] [address] Stephanie Kate, RN Social History Tobacco Use [...] or suspected to have Coronavirus / COVID-19? Unable to assess 10/04/2020 11:15 AM EDT documented as of this encounter Plan of Treatment Upcoming Encounters Date Type Department Care Team (Late Contact Info) Description 03/07/2025 1:30 PM EST Office Visit [facility] [address] [place] [address] Arabella Garcia, STRIPPER LATEX-SEPARATIONS SCIENTIST [address] [place] [address] Glory Sy PA-C [address] [place], [place] [address] documented as of this encounter Visit Diagnoses Not on filedocumented in this encounter Additional Health Concerns Infection Onset Date Last Indicated Resolved Time COVID-19 Rule-Out 04/26/2024 04/26/2024 04/26/2024 6:32 PM EST documented as of this encounter Care Teams Interior Design Director Relationship Specialty Start Date End Date Meagan Arreaga MD [address] [place] [address] PCP - General Family Medicine 10/22/18 documented as of this encounter
--- OUTSIDE RECORDS SUMMARY | 2025-02-15 13:57 | XMS_ITS ---
Author Organization [facility] Address [address] [facility] [place] [address] Care Team Providers Care Astrophysics Professor Name Role Phone Meagan Arreaga MD Primary Care Provider [phone] Michelle Alonso TELECOMMUNICATIONS NETWORK ENGINEER Unavailable Michelle Alonso TELECOMMUNICATIONS NETWORK ENGINEER Unavailable [phone] Chronic Care Management (CCM) Status:Enrolled (Active) Start date:05/10/2021 Enrollment date:05/10/2021 Overview 02/18/23, 12:40 PM - MATTHEW Ellis- Patient gives verbal consent to be enrolled in CCM Program and understands there could be a bill for this service. Case Team Name Relationship Phone Meagan Ernandez RN(Responsible Staff) Care Manage r RN [phone] Christel CASTRO Network Mgr [phone] Continued Care and Services Coordination
--- OUTSIDE RECORDS SUMMARY | 2025-02-15 13:57 | XMS_ITS | Encounter Summary ---
Author Organization [facility] tem Address [facility] [id number] [address] [place] [address] Care Team Providers Care Winter Intern Name Role Phone Meagan Arreaga MD Primary Care Provider [phone] Encounter Details Date Type Department Care Team (Late Contact Info) Description 10/23/2020 Telephone [facility] [address] [place] [address] Stephanie Kate, RN Social History Tobacco Use [...] have Coronavirus / COVID-19? No / Unsure 10/25/2020 12:38 PM EDT documented as of this encounter Plan of Treatment Upcoming Encounters Date Type Department Care Team (Late Contact Info) Description 03/07/2025 1:30 PM EST Office Visit [facility] [address] [place] [address] Arabella Garcia, HEAVY EQUIPMENT SALES MANAGER-PROVIDER RELATIONS MANAGER [address] [place] [address] Glory Sy PA-C [address] [place], [place] [address] documented as of this encounter Visit Diagnoses Not on filedocumented in this encounter Additional Health Concerns Infection Onset Date Last Indicated Resolved Time COVID-19 Rule-Out 04/26/2024 04/26/2024 04/26/2024 6:32 PM EST documented as of this encounter Care Teams Winter Intern Relationship Specialty Start Date End Date Meagan Arreaga MD [address] [place] [address] PCP - General Family Medicine 10/22/18 documented as of this encounter
--- OUTSIDE RECORDS SUMMARY | 2025-02-15 13:57 | XMS_ITS | Encounter Summary ---
Author Organization [facility] Address [address] [facility] [place] [address] Care Team Providers Care Highway Maintenance Worker Name Role Phone Meagan Arreaga MD Primary Care Provider [phone] Michelle Alonso DESIGN TECH Unavailable [phone] Michelle Alonso DESIGN TECH Unavailable [phone] Encounter Details Date Type Department Care Team (Late st Contact Info) Description 08/30/2023 Abstract [facility] [address] [place] [address] Meagan Arreaga MD [address] [place] [address] Social History Tobacco Use Types [...] documented as of this encounter Care Teams Highway Maintenance Worker Relationship Specialty Start Date End Date Meagan Arreaga MD [address] [place], [place] [address] PCP - General Family Medicine 09/20/22 Michelle Alonso NP [address] [facility], [place] [address] PCP - Ben EMERY 05/05/23 Michelle Alonso, ALIDA [address] [place], [place] [address] Nurse Practitioner Family Medicine 09/20/22 documented as of this encounter
--- OUTSIDE RECORDS SUMMARY | 2025-02-15 13:57 | XMS_ITS | Encounter Summary ---
Author Organization [facility] Address [address] [facility] [place] [address] Care Team Providers Care Activities Manager Name Role Phone Meagan Arreaga MD Primary Care Provider [phone] Michelle Alonso MEDICAL REIMBURSEMENT SPECIALIST Unavailable [phone] Michelle Alonso MEDICAL REIMBURSEMENT SPECIALIST Unavailable [phone] Encounter Details Date Type Department Care Team (Late st Contact Info) Description 11/28/2024 Abstract [facility] [address] [facility] [place] [address] Michelle Alonso MEDICAL REIMBURSEMENT SPECIALIST [address] [place] [address] Social History Tobacco Use Types Packs/Day [...] Noted Time PHQ-9 Depression Total Score: 6 09/09/19 24 1:00 PM EDT documented as of this encounter Care Teams Activities Manager Relationship Specialty Start Date End Date Meagan Arreaga MD [address] [place] [address] PCP - General Family Medicine 09/20/22 Michelle Alonso NP [address] [facility], [place] [address] PCP - Ben EMERY 05/05/23 Michelle Alonso NP [address] [place], [place] [address] Nurse Practitioner Family Medicine 09/20/22 documented as of this encounter
--- OUTSIDE RECORDS SUMMARY | 2025-02-15 13:57 | XMS_ITS | Encounter Summary ---
Author Organization [facility] tem Address [facility] [id number] [address] [place] [address] Care Team Providers Care Typewriter Mechanic Name Role Phone Meagan Arreaga MD Primary Care Provider [phone] Encounter Details Date Type Department Care Team (Late Contact Info) Description 06/26/2021 Orders Only [facility] [address] [place] [address] External, Scanning Provider Social History Tobacco Use [...] have Coronavirus / COVID-19? No / Unsure 06/25/2021 8:00 AM EST documented as of this encounter Plan of Treatment Upcoming Encounters Date Type Department Care Team (Late Contact Info) Description 03/07/2025 1:30 PM EST Office Visit [facility] [address] [place] [address] Arabella Garcia, STRAW HAT BRUSHER-PROCESS ENGINEER [address] [place] [address] Glory Sy PA-C [address] [place], [place] [address] documented as of this encounter Procedures Procedure Name Priority Date/Time Associated Diagnosis Comments MULTIPLE LABS Routine 06/15/2021 documented in this encounter Results * Multiple labs (06/15/2021) us Scanning Provider External MD IMAGING Final Result MANUALLY TRANSCRIBED RESULTS documented in this encounter Visit Diagnoses Not on filedocumented in this encounter Additional Health Concerns Infection Onset Date Last Indicated Resolved Time COVID-19 Rule-Out 04/26/2024 04/26/2024 04/26/2024 6:32 PM EST documented as of this encounter Care Teams Typewriter Mechanic Relationship Specialty Start Date End Date Meagan Arreaga MD [address] [place] [address] PCP - General Family Medicine 10/22/18 documented as of this encounter
--- OUTSIDE RECORDS SUMMARY | 2025-02-15 13:57 | XMS_ITS | Encounter Summary ---
Author Organization [facility] tem Address [facility] [id number] [address] [place] [address] Care Team Providers Care Gaming Worker Name Role Phone Meagan Arreaga MD Primary Care Provider [phone] Encounter Details Date Type Department Care Team (Late Contact Info) Description 11/28/2020 Telephone [facility] [address] [place] [address] Stephanie Kate, RN Social History Tobacco Use [...] have Coronavirus / COVID-19? Unable to assess 11/29/2020 3:04 PM EDT documented as of this encounter Plan of Treatment Upcoming Encounters Date Type Department Care Team (Late Contact Info) Description 03/07/2025 1:30 PM EST Office Visit [facility] [address] [place] [address] Arabella Garcia, MANUFACTURING QUALITY TECHNICIAN-FUR STRETCHER [address] [place] [address] Glory Sy PA-C [address] [place], [place] [address] documented as of this encounter Visit Diagnoses Not on filedocumented in this encounter Additional Health Concerns Infection Onset Date Last Indicated Resolved Time COVID-19 Rule-Out 04/26/2024 04/26/2024 04/26/2024 6:32 PM EST documented as of this encounter Care Teams Gaming Worker Relationship Specialty Start Date End Date Meagan Arreaga MD [address] [place] [address] PCP - General Family Medicine 10/22/18 documented as of this encounter
--- OUTSIDE RECORDS SUMMARY | 2025-02-15 13:57 | XMS_ITS ---
Author Organization [facility] Care Team Providers Care Back Closer Name Role Phone Elly Carranza Unavailable Unavailable Adiel Christianson Unavailable Unavailable Allergies and adverse reactions Code CodeSystem Substance Reaction Severity StartDate Concern Status Bactrim Unknown 11/06/[address] Penicillins Unknown 11/06/2018 activ e Care Team Name Role Address Phone Organization Dates Adiel Christianson PCP [address] [facility] [address], [place], [address], [place] (Office): : : [facility] 12/28/2021 - 01/27/2022 Elly Carranza [address], [place], [address], [place] (Office): : : [facility] 12/28/2021 - 01/27/2022 Goals Section Goals Description Status Target Date Early recognition of respira tory infection to allow for prompt treatment. Active 04/08/2022 Maintain baseline VS x's 90 days. Active 04/08/2022 Maintain continence and prevent UTI x's 90 days. Active 04/08/2022 No adverse side effects of psychotropic medicati on x's 90 days. Active 04/08/2022 Kelsie will complete her own medication management by next review and Will complete own financial tasks including managing her bills, check register, and functional organization and & #13;Will increase ability to understand complex messages and Will increase recall of daily events using visual aids as needed Active 04/08/2022 Kelsie will express satisfact ion with type of activities and level of activity involvement when asked through the review date. Active 04/08/2022 Prevent falls x's 90 days. Active 04/08 Prevent skin breakdown r/t pressure x's 90 days. Active 04/08/2022 Provide activities and socia lization within limitations of COVID-19 precautions Active 04/08/2022 Resident will continue to re ceive support from family and friends to help maintain mood. Active 04/08/2022 Resident will demonstrate relaxed facial express ions Active 04/08/2022 Resident will discharge to [facility] with services as necessary upon completion of rehab Active 04/08/2022 Resident will express feelin gs d/t lack of control over illness and/or placement Active 04/08/2022 Resident will express positi ve aspect of self and/or situation daily through next review Active 04/08/2022 Resident will receive daily opportunities for social contact through the review date. Active 04/08/2022 Resident will remain free of respiratory infection AEB normal vital signs, absence of signs and symptoms of respiratory infection. Active 04/08/2022 Resident will show evidence of adjustment to placement by having meals in dining room, attending activities of choice through the review date. Active 04/08/2022 Resident will verbalize acce ptance of placement in facility through next review Active 04/08/2022 Resident will verbalize/comm unicate and understanding of the discharge plan and describe the desired outcome by the review date. Active 04/08/2022 The resident will maintain t he ability to seek social contact and stimulation through the review date. Active 04/08/2022 Will be able to function at the fullest potential possible as outlined by the interdisciplinary team through the review date. Active 04/08/2022 Will consume at least 50% of meals Active 04/08/2022 Will have minimal or no SOB x's 90 days. Active 04/08/2022 Will have minimal or no edema through next revie w. Active 04/08/2022 Will improve current level o f function in order to return home when rehab complete. Active 04/08/2022 Will not have discomfort rel ated to side effects of analgesia through the review date. Active 04/08/2022 Will receive least dose necessary to relieve sym ptoms x's 90 days. Active 04/08/2022 Will show improvement to max imum potential with mobility and cognition by review date. Active 04/08/2022 Will verbalize adequate reli ef of pain or ability to cope with incompletely relieved pain through the review date. Active Immunizations Immunization Status Vaccine Details Vaccine Code CodeSystem Date Notes Influenza completed Influenza, high-dose, split virus, quadrivalent, injectable, preservative free 197 CVX created date: 12/31/2021 administer ed date: 02/15/2021 Pneumovax Dose 1 completed pneumococcal conjugate vaccine, 13 valent 133 CVX created date: 12/31/2021 administer ed date: 12/25/2011 TB 2 Step Mantoux Skin Test completed tuberculin skin test; unspecified formulation Mfg: ZIOP[employer] Oncology Given 0.1 ml Left Forearm intradermally Step 2 of Multi-step with next step required 98 CVX created date: 01/04/2022 consent date: 01/04/2022 administer ed date: 01/04/2022 TB 2 Step Mantoux Skin Test completed tuberculin skin test; unspecified formulation Mfg: ZIOPHARM Oncology Given 0.1 ml Left Forearm intradermally Step 1 of Multi-step with next step required 98 CVX created date: 12/31/2021 consent date: 12/31/2021 administer ed date: 12/29/2021 Covid-19 Dose 1 completed SARS-COV-2 (COVID-19) vaccine, mRNA, spike protein, LNP, preservative free, 30 mcg/0.3mL dose, kirby-sucrose formulation 217 CVX created date: 12/31/2021 administer ed date: 05/29/2020 Pfizer dose 1 Covid-19 Dose 2 completed SARS-COV-2 (COVID-19) vaccine, mRNA, spike protein, LNP, preservative free, 30 mcg/0.3mL dose, kirby-sucrose formulation 217 CVX created date: 12/31/2021 administer ed date: 06/23/2020 Pfizer dose 2 SARS-COV-2 (COVID-19) completed SARS-COV-2 (COVID-19) vaccine, mRNA, spike protein, LNP, preservative free, 30 mcg/0.3mL dose, kirby-sucrose formulation Step 2 of Multi-step with next step required 217 CVX created date: 12/31/2021 administer ed date: 08/15/2021 Pfizer Booster #2 SARS-COV-2 (COVID-19) completed SARS-COV-2 (COVID-19) vaccine, mRNA, spike protein, LNP, preservative free, 30 mcg/0.3mL dose, kirby-sucrose formulation Step 1 of Multi-step with next step required 217 CVX created date: 12/31/2021 administer ed date: 02/07/2021 [facility] booster #1 Mental Status Section Date Assessment Total Score Description 01/27/2022 BIMS 12 moderate cognit abdias impairment CAM 0 No delirium ind icated PHQ-9 02 minimal depress ion 01/02/2022 BIMS 13 cognitively int act CAM 0 No delirium ind icated PHQ-9 03 minimal depress ion Insurance Providers Plan of Treatment Section Interventions Intervention Code Code System Display Name Proposed D ate Problems Problem # Description Date of onset Resolved Date Code CodeSystem Concern Status 1 OTHER SPECIFIED DISORDERS OF BRAIN 12/29/[address] active 2 ACQUIRED ABSENCE OF BOTH CERVIX AND UTERUS 12/28/[address] active 3 ANTERIOR DISLOCATION OF RIGHT HUMERUS, SUBSEQUENT ENCOUNTER 12/28/[address] active 4 ANXIETY DISORDER, UNSPECIFIED 12/28/[address] active 5 ATHEROSCLEROTIC HEART DISEASE OF [place] CORONARY ARTERY WITHOUT ANGINA PECTORIS 12/28/[address] active 6 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 12/28/[address] active 7 HISTORY OF FALLING 12/28/[address] active 8 HYPERLIPIDEMIA, UNSPECIFIED 12/28/[address] active 9 INFERIOR DISLOCATION OF RIGHT HUMERUS, SUBSEQUENT ENCOUNTER 12/28/[address] active 10 MAJOR DEPRESSIVE DISORDER, SINGLE EPISODE, IN FULL REMISSION 12/28/[address] active 11 OTHER SYMBOLIC DYSFUNCTIONS 12/28/[address] active 12 TRAUMATIC SUBARACHNOID HEMORRHAGE WITHOUT LOSS OF CONSCIOUSNESS, SUBSEQUENT ENCOUNTER 12/28/[address] active 13 TRAUMATIC SUBDURAL HEMORRHAGE WITHOUT LOSS OF CONSCIOUSNESS, SUBSEQUENT ENCOUNTER 12/28/[address] active 14 UNSTEADINESS ON FEET 12/28/[address] active 15 WEAKNESS 12/28/[address] active 16 ACUTE KIDNEY FAILURE, UNSPECIFIED 11/10/19 19 11/16/[address] completed 17 COGNITIVE COMMUNICATION DEFICIT 11/10/[address] active 18 ENCOUNTER FOR SURGICAL AFTERCARE FOLLOWING SURGERY ON THE CIRCULATORY SYSTEM 11/10/19 19 11/16/[address] completed 19 HYPERTENSIVE HEART DISEASE WITH HEART FAILURE 11/10/[address] active 20 HYPO-OSMOLALITY AND HYPONATREMIA 11/10/19 19 11/16/[address] completed 21 LEFT VENTRICULAR FAILURE, UNSPECIFIED 11/10/[address] active 22 NIGHT FILLER (CURRENT) USE OF ANTICOAGULANTS 11/10/[address] active 23 SENIOR CARE (CURRENT) USE OF ASPIRIN 11/10/19 19 11/16/[address] completed 24 MUSCLE WEAKNESS (GENERALIZED) 11/10/[address] active 25 PRESENCE OF CORONARY ANGIOPLASTY IMPLANT AND GRAFT 11/10/[address] active 26 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 11/10/19 19 11/16/[address] completed Reason for Referral No Reasons for Referral Entered Social History Social History Observation Description Start Date End Date Code Code System Current Smoking Status Tobacco smoking consumption unknown 363657048 SNOMED CT Sex Assigned At Female 1935 [address]10-1 [facility] Gender Identity Sexual Orientation Vital Signs Code Code System Vitals Name Values and Units Timing Information 9279-1 [facility] Respiratory Rate Value=18.0 Units=/m in 01/27/2022 8462-4 [facility] Blood Pressure-Diastolic Value=73 Un its=mmHg 01/27/2022 8480-6 [facility] Blood Pressure-Systolic Kxodl=945 Un its=mmHg 01/27/2022 8310-5 [facility] Body Temperature Value=98.8 Units= F 01/27/2022 8867-4 [facility] Heart rate Value=85.0 Units=/min 00385-6 [facility] O2 % BldC Oximetry Value=96.0 Units= % 01/27/2022 26616-1 [facility] Pain Level Value=0.0 01/25/2022 51075-2 [facility] Weight Nllrf=919.5 Units=Lbs
--- OUTSIDE RECORDS SUMMARY | 2025-02-15 13:57 | XMS_ITS | Encounter Summary ---
Author Organization [facility] Address [address] [place] [address] Care Team Providers Care Mill Machinist Name Role Phone Meagan Arreaga MD Primary Care Provider [phone] Michelle Alonso SALES FLOOR ASSOCIATE Unavailable [phone] Michelle Alonso SALES FLOOR ASSOCIATE Unavailable [phone] Encounter Details Date Type Department Care Team (Late st Contact Info) Description 02/07/2025 Patient Outreach [facility] [address] [place] [address] Christel Santizo LSW [address] [place] [address] Social History Tobacco Use Types Packs/Day Years [...] on file documented as of this encounter Progress Notes * MATTHEW Ellis - 02/07/2025 10:29 AM EDT <February 08, 2025, 16:43 - MATTHEW Ellis> Chart reviewed. Called and spoke to pt's daughter, Abby, for CCM monitoring. Pt doing well. She is enjoying having home health services and it keeps her busy. Mood has still been more controlled, psych follow up is in 2-3 weeks. Pt has eye appt end of this month also. Pt's son who lives with her is still incarcerated, but his ex-gf Nancy has moved back in. Abby describes setting boundaries with Nancy and so far there has been no incidents. Nancy assists with cooking and cleaning which takessome responsibility off of Abby. This arrangement is temporary and Nancy is looking for other housing. Reviewed goals for care plan. Abby brings up concern that was recently discussed with RN, of pt not wanting to see Michelle or Dr. Arreaga going forward. Reviewed that there is another SALES FLOOR ASSOCIATE pt could see, or concerns could be discussed with Michelle and see if pt would be willing to see her again for next appt. No other needs at this time. * MATTHEW Ellis - 02/07/2025 10:29 AM EDT Images from the original note were not included. 02/07/2025 Kelsie Rico 1935 [address] [place] [address] Problem: Fall Risk Goal: Patient will be free of falls Intervention: Patient will remove all items from the path of walking, such as rugs, cords, or animals that may cause a disturbance to gait. Intervention: Patient will utilize a cane and/or walker for ambulation and stability at all times Intervention: Patient will report any new onset, or worsening, signs and symptoms of extremity painor swelling that may impair stability , Problem: Fall Risk Goal: Patient will report a fall(s) incident to a Chronic Care Management (CCM) swat team member and/or provider for follow-up and/or evaluation of needs Intervention: Care Management will assess for recent falls , and Problem: Mood & Cognitive Changes Goal: Patient will maintain reality orientation and communicate appropriately with others. Intervention: Assess for symptoms and/or causes of anxiety and/or depression. Intervention: Encourage routine follow up with psychiatrist * MATTHEW Ellis - 02/07/2025 10:29 AM EDT <February 09, 2025, 10:12 - MATTHEW Ellis> Care plan mailed to pt. documented in this encounter Plan of Treatment Not on file documented as of this encounter Visit Diagnoses Diagnosis Congestive heart failure, unspecified HF chronicity, unspecified heart failure type (HCC)- Primary Mild dementia without behavioral disturbance, psychotic disturbance, mood disturbance, or anxiety, unspecified dementia type (HCC) documented in this encounter Additional Health Concerns Assessment Noted Time PHQ-9 Depression Total Score: 6 09/09/19 24 1:00 PM EDT documented as of this encounter Care Teams Mill Machinist Relationship Specialty Start Date End Date Meagan Arreaga MD [address] [place] [address] PCP - General Family Medicine 09/20/22 Michelle Alonso NP [address] [place] [address] PCP - Ben EMERY 05/05/23 Michelle Alonso NP [address] [place] [address] Nurse Practitioner Family Medicine 09/20/22 documented as of this encounter
--- OUTSIDE RECORDS SUMMARY | 2025-02-15 13:57 | XMS_ITS | Encounter Summary ---
Author Organization [facility] Address [id number] [address] [place] [address] Care Team Providers Care Director Of Placement Name Role Phone Meagan Arreaga MD Primary Care Provider [phone] Encounter Details Date Type Department Care Team (Late Contact Info) Description 06/25/2021 Orders Only [facility] [address] [place] [id number] External, Scanning Provider Social History Tobacco Use [...] Cardiology [address] [place] [id number] Arabella Garcia, EXPLOSIVE ORDNANCE HANDLER-SUGGESTION CLERK [address] [place] [address] Glory Sy PA-C [address] [place], [place] [id number] documented as of this encounter Procedures Procedure Name Priority Date/Time Associated Diagnosis Comments ECG 12-LEAD Routine 06/15/2021 documented in this encounter Results * ECG 12 lead (06/15/2021) us Scanning Provider External ECG ORDERABLES Final Result MANUALLY TRANSCRIBED RESULTS documented in this encounter Visit Diagnoses Not on filedocumented in this encounter Additional Health Concerns Infection Onset Date Last Indicated Resolved Time COVID-19 Rule-Out 04/26/2024 04/26/2024 04/26/2024 6:32 PM EST documented as of this encounter Care Teams Director Of Placement Relationship Specialty Start Date End Date Meagan Arreaga MD [address] [place] [address] PCP - General Family Medicine 10/22/18 documented as of this encounter
--- OUTSIDE RECORDS SUMMARY | 2025-02-15 13:57 | XMS_ITS | Encounter Summary ---
Author Organization [facility] Address [address] [facility] [place] [address] Care Team Providers Care Foster Care Case Manager Name Role Phone Meagan Arreaga MD Primary Care Provider [phone] Michelle Alonso HANDLE SEWER Unavailable [phone] Michelle Alonso HANDLE SEWER Unavailable [phone] Encounter Details Date Type Department Care Team (Late st Contact Info) Description 08/30/2023 Abstract [facility] [address] [place] [address] Meagan Arreaga MD [address] [place] [address] Social History Tobacco Use Types [...] documented as of this encounter Care Teams Foster Care Case Manager Relationship Specialty Start Date End Date Meagan Arreaga MD [address] [place], [place] [id number] PCP - General Family Medicine 09/20/22 Michelle Alonso NP [address] [facility] [place] [address] PCP - Ben EMERY 05/05/23 Michelle Alonso, ALIDA [address] [place], [place] [id number] Nurse Practitioner Family Medicine 09/20/22 documented as of this encounter
--- OUTSIDE RECORDS SUMMARY | 2025-02-15 13:57 | XMS_ITS | Encounter Summary ---
Author Organization [facility] Address [address] [facility] [place] [address] Care Team Providers Care Freight And Passenger Agent Name Role Phone Meagan Arreaga MD Primary Care Provider [phone] Michelle Alonso NP Unavailable [phone] Michelle Alonso INSURANCE BILLER Unavailable [phone] Encounter Details Date Type Department Care Team (Latest Contact Info) Description 10/08/2024 Results Follow-Up [facility] Family Medicine [address] [place] [address] Michelle Alonso NP [address] [place], [place] [address] XR chest 2 views, Comprehensive metabolic panel Social History Tobacco Use Types Packs/Day Years [...] as of this encounter Miscellaneous Notes * Result Encounter Note - Michelle Alonso NP - 10/08/2024 10:00 AM EDT Let patient know her labs are stable * Result Encounter Note - Michelle Alonso NP - 10/08/2024 8:01 AM EDT Let patient know her xray was negative. Splint the area like we talked about yesterday and take deep breathes. documented in this encounter Plan of Treatment Not on file documented as of this encounter Visit Diagnoses Not on filedocumented in this encounter Additional Health Concerns Assessment Noted Time PHQ-9 Depression Total Score: 6 09/09/19 24 1:00 PM EDT documented as of this encounter Care Teams Freight And Passenger Agent Relationship Specialty Start Date End Date Meagan Arreaga MD [address] [place] [address] PCP - General Family Medicine 09/20/22 Michelle Alonso NP [address] [place] [address] PCP - Ben EMERY 05/05/23 Michelle Alonso NP [address] [facility] [place] [address] Nurse Practitioner Family Medicine 09/20/22 documented as of this encounter
--- OUTSIDE RECORDS SUMMARY | 2025-02-15 13:58 | XMS_ITS | Patient Health Record ---
Author Organization [facility] [place] Address [address] [place] [address] Care Team Providers Care Attache Name Role Phone None, Unknown or Primary Care Provider Unavailab Rafa Velasquez Unavailable [phone] Cat Larsen Unavailable [phone] Allergies Allergen (clinical drug ingredient) Drug/Non Drug Allergy documented on EMR Reaction Allergy Type Onset Date Status Penicillin Unknown Drug Allergy Active Reason For Referral No Information Medications Medication SIG (Take, Route, Frequency, Duration) Notes Start Date End Date Status Lisinopril Active Rosuvastatin Calcium Active PreserVision AREDS A ctive Escitalopram &[id number]-D Active Iron Active busPIRone HCl Active Aspirin Active Carvedilol Active Clindamycin HCl Acti ve Social History Tobacco Use: Social History Observation Description Date Details (start date - stop date) Never Smoker NA - NA Tobacco Control (Standard) Question Answer Notes Tobacco use: Nonsmoker Problems Problem Type SNOMED Code ICD Code Onset Dates Problem Status W/U Status Risk Notes Problem Acquired hammer toe of right foot (2128223709825 105) Other hammer toe(s) (acquired), right foot (M20.41) Active confirmed Problem Acquired hammer toe of left foot (7001142883379 103) Other hammer toe(s) (acquired), left foot (M20.42) Active confirmed Vital Signs Heart Rate 74 /min 03/09/2024 Height 62 in 03/09/2024 Weight 112 lbs 03/09/2024 BMI 20.48 kg/m2 03/09/2024 Encounters Encounter Location Date Provider Diagnosis [facility] (PODIATRY) [address] [place] [address] [place] [address] 03/09/2024 Rafa Stearns Other hammer toe(s) (acquired), left foot M20.42 ; Other hammer toe(s) (acquired), right foot M20.41 ; Corns and callosities L84 and Tinea unguium B35.1 [facility] [place] (PODIATRY) [address] [place] [address] [place] [address] 06/17/2024 Cat Larsen Assessments Encounter Date Diagnosis (ICD Code) Assessment Notes Treatment Notes Treatment Clinical Notes Section Notes 03/09/2024 Other hammer toe(s) (acquired), right foot (ICD-10 - M20.41) 03/09/2024 Other hammer toe(s) (acquired), left foot (ICD-10 - M20.42) She does have painful hammertoes and I briefly discussed potential surgery which I do not recommend at this point and patient agrees for will attempt a silicone toe sleeve which was dispensed to her today. 03/09/2024 Corns and callosities (ICD-10 - L84) Patient does have abnormal pulse exam and absent digital hair therefore recommended routine trimming by a tailor men's ready to wear. This is done so today without incident to patient satisfaction with a 15 blade. I recommended moisturizer to be applied after showering 03/09/2024 Tinea unguium (ICD-10 - B35.1) Nails 1 through 10 were sharply debrided without incident to patient satisfaction. Recommended routine nail debridements every 3 months Plan Of Treatment No Information Insurance Providers Payer Name Payer Address Payer Phone Subscriber Number Group Number Insured Name Patient Relationship to Insured Coverage Start Date Coverage End Date [employer]V [employer]IMARY MEDICARE [address] [place] [phone] [id number] [id number] Kelsie Rico Self - patient is the insured Medical (General) History Medical History History ICD Code arthritis heart disease hypertension Surgical History Surgery Date(Month/Year) shoulder/post dislocation hip surgery cholecystectomy hysterectomy heart
--- OUTSIDE RECORDS SUMMARY | 2025-02-15 13:58 | XMS_ITS | Encounter Summary ---
Author Organization [facility] Address [address] [facility] [place] [address] Care Team Providers Care Power Saw Operator Name Role Phone Meagan Arreaga MD Primary Care Provider [phone] Michelle Alonso REFINERY PIPELINE OPERATOR Unavailable [phone] Michelle Alonso REFINERY PIPELINE OPERATOR Unavailable [phone] Encounter Details Date Type Department Care Team (Late st Contact Info) Description 12/31/2022 Abstract [facility] [address] [facility] [place] [address] Meagan Arreaga MD [address] [facility] [place] [address] Social History Tobacco Use Types [...] on filedocumented in this encounter Care Teams Power Saw Operator Relationship Specialty Start Date End Date Meagan Arreaga MD [address] [place] [address] PCP - General Family Medicine 09/20/22 Michelle Alonso NP [address] [place], [place] [id number] PCP - Ben EMERY 05/05/23 Michelle Alonso NP [address] [place], [place] [address] Nurse Practitioner Family Medicine 09/20/22 documented as of this encounter
--- OUTSIDE RECORDS SUMMARY | 2025-02-15 13:58 | XMS_ITS | Clinical Summary ---
Author Organization [facility] Healthcare Address [address] [place] [address] Care Team Providers Care Design Drafter Name Role Phone Meagan Arreaga MD Primary Care Provider [phone] Michelle Alonso OUTSOLE CEMENTER Unavailable Michelle Alonso OUTSOLE CEMENTER Unavailable [phone] Allergies Active Allergy Reactions Criticality Noted Date Comments Penicillin G Unknown 10/15/2022 Sulfamethoxazole-Trimethoprim Unknown 2022 Medications cholecalciferol (Vitamin D-3) 25 MCG (1000 UT) tablet Take 25 mcg by mouth in the morning. 023 Active aspirin 81 MG EC tablet 1 (one) time each day at the same time. Active carvedilol (Coreg) 6.25 MG tablet TAKE 1 TABLET BY MOUTH TWICE DAILY (MORNING AND BEFORE BEDTIME) Active SV Iron 325 MG tablet Take 325 mg by mouth in the morning and 325 mg before bedtime. 023 Active acetaminophen (Tylenol) 500 MG tablet Take 500 mg by mouth every 6 (six) hours if needed. 022 Active b complex vitamins capsule Take 1 capsule by mouth in the morning. Active Ascorbic Acid (vitamin C) 250 MG tablet Take 250 mg by mouth in the morning. Active Apoaequorin (PREVAGEN PO) Take by mouth Ac tive Multiple Vitamins-Minerals (PRESERVISION/LUT EIN PO) Take 1 tablet by mouth 1 (one) time each day Active Multiple Vitamins-Minerals (Multivitamin Women 50+) tablet Take 1 tablet by mouth Daily Active escitalopram (Lexapro) 20 MG tabletIndications :Recurrent major depressive disorder, remission status unspecified Take 1 tablet by mouth once daily 90 tablet Active Additional Information Patient taking differently: 15 mg Oral 2 times daily, Morning, Bedtime, Reported on 11/23/2024 busPIRone (Buspar) 10 MG tablet Take 10 mg by mouth in the morning and 10 mg before bedtime. Active amLODIPine (Norvasc) 5 MG tabletIndications :Primary hypertension Take 1 tablet (5 mg) by mouth Daily 90 tablet 3 Active triamcinolone (Kenalog) 0.1 % oral paste APPLY A FILM AFTER MEALS AND BEFORE BEDTIME FOR 7 DAYS Active fluticasone (Flonase) 50 MCG/ACT nasal sprayIndications: Seasonal allergic rhinitis due to other allergic trigger Administer 1 spray into each nostril Daily Shake gently. Before first use, prime pump. After use, clean tip and replace cap. 16 g 2 Active lisinopril 10 MG tabletIndications :Primary hypertension TAKE 1 TABLET BY MOUTH IN THE MORNING 30 tablet 025 Active rosuvastatin (Crestor) 10 MG tabletIndications :Other hyperlipidemia Take 1 tablet by mouth once daily 90 tablet 1 025 Active rosuvastatin (Crestor) 10 MG tabletIndications :Other hyperlipidemia Take 1 tablet by mouth once daily 90 tablet 025 2024 Discontinued lisinopril 10 MG tabletIndications :Primary hypertension TAKE 1 TABLET BY MOUTH IN THE MORNING 30 tablet 025 2024 Discontinued Active Problems Problem Noted Date Diagnosed Date Elevated LFTs 04/27/2024 Iron deficiency anemia secon hanna to inadequate dietary iron intake 04/27/2024 SIRS (systemic inflammatory response syndrome) 1 06/27/2023 Infected wound 03/26/2024 Leg edema, left 03/26/2024 Cognitive decline 07/31/2023 Sequela of ischemic cerebral infarction 07/31/19 Anemia in other chronic diseases classified else where 10/15/2022 Anxiety 10/15/2022 Atherosclerosis of coronary artery 10/15/2022 Carotid stenosis, bilateral 10/15/2022 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 10/15/2022 Primary hypertension 10/15/2022 Assessment & Plan (01/24/2025 2:12 PM EDT): Recurrent major depressive disorder 10/15/2022 Seasonal allergic rhinitis 10/15/2022 Thrombocytopenia 10/15/2022 Vitamin D deficiency 10/15/2022 Visual field cut 10/14/2022 Polyneuropathy 10/14/2022 Menopause 04/14/2019 Moderate malnutrition ([facility]) 11/09/2018 Recurrent major depressive disorder, in full rem ission 03/14/2018 Mild dementia without behavi oral disturbance, psychotic disturbance, mood disturbance, or anxiety, unspecified dementia type Overview (11/28/2022): She answers the first 18 questions on the MMSE, but she gets 0 for recall. Unable to recall events from last weekend. Gets confused in telling stories. She gets angry when others try to fill in the blanks. Assessment & Plan (01/24/2025 1:51 PM EDT): Resolved Problems Problem Noted Date Diagnosed Date Resolved Date Acute ST elevation myocardia l infarction (STEMI) 10/15/2022 09/20/2023 Aphasia 10/15/2022 09/20/2023 Difficulty walking 10/15/2022 Hypomagnesemia 10/15/2022 09/20/2023 Multiple falls 10/15/2022 09/20/2023 Normal pressure hydrocephalus 10/15/2022 11/28/2022 Porokeratosis 10/15/2022 09/20/2023 Subdural hematoma 10/15/2022 09/20/2023 Overview (11/28/2022): Memory issues have declined since this episode. 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 Hand pain, right 10/14/2022 09/20/2023 Closed fracture of proximal end of ulna 05/30/2022 09/20/2023 ISTAP type 2 skin tear of ri ght lower extremity 10/04/2020 09/20/2023 Encounters Date Type Department Care Team Description 02/07/2025 Patient Outreach [facility] [address] [place] [address] Christel Santizo LSW 01/31/2025 Patient Outreach [facility] [address] [place] [address] Meagan Ernandez RN 01/25/2025 Refill [facility] [address] [place] [phone] Lorelei Rodriguez NP Other hyperlipidemia 01/24/2025 1:30 PM EDT Office Visit [facility] [address] [place] [phone] Michelle Alonso NP Need for vaccination (Primary Dx); Mild dementia without behavioral disturbance, psychotic disturbance, mood disturbance, or anxiety, unspecified dementia type (HCC); Unsteady gait; At high risk for falls; Primary hypertension 01/24/2025 Patient Outreach [facility] [address] [place] [phone] Megaan Ernandez RN 01/24/2025 Travel 01/24/2025 Refill [facility] [address] [place] [phone] Lorelei Rodriguez NP Primary hypertension 01/17/2025 Patient Outreach [facility] [address] [place] [address] Christel Santizo, [facility] 01/13/2025 Patient Outreach [facility] [address] [place] [address] Christel Santizo, [facility] 12/29/2024 Patient Outreach [facility] [address] [place] [address] Meagan Ernandez RN 12/26/2024 Refill [facility] [address] [place] [phone] Lorelei Rodriguez NP Primary hypertension 12/14/2024 Patient Outreach [facility] [address] [place] [address] Christel Santizo, [facility] 11/28/2024 Abstract [facility] [address] [place] [facility] [phone] Michelle Alonso NP 11/26/2024 Refill [facility] [address] [place] [facility] [phone] Lorelei Rodriguez NP Primary hypertension 11/23/2024 Patient Outreach [facility] [address] [place] [address] Meagan Ernandez, MATILDA from Last 3 Months Immunizations Immunization Administration Dates Next Due Influenza, High Dose Seasona l, Preservative Free 01/24/2025,01/14/2024,01/30/2022,02/10 Influenza, High-dose Seasona l, Quadrivalent, Preservative Free 02/18/2023,01/30/2022,02/15/2021,02/14,01/26/2020,02/09/2019 Influenza, injectable, quadr ivalent, preservative free 12/31/2017 Pfizer Purple Cap SARS-CoV-2 Vaccination 02/06/2021,06/22/2020,05/28/2020 Pneumococcal Conjugate PCV 13 04/24/2020 Pneumococcal Polysaccharide PPSV23 04/16/2018 SARS-COV-2 (COVID-19) vaccin e, mRNA, spike protein, LNP, PF, 50 mcg/0.5 mL 02/18/2023 Td (adult), 5 Lf tetanus tox oid, preservative free, adsorbed 12/31/2018 Tdap 12/23/2021 Family History Medical History Relation Name Comments Dementia Brother Kidney failure Father Heart disease Maternal Grandfather Lung disease Mother Tuberculosis Mother Dementia Sister Relation Name Status Comments Brother Father Maternal Grandfather Mother Sister Social History Tobacco Use Types Packs/Day Years [...] Sign Reading Time Taken Comments Blood Pressure 148/62 01/24/2025 1:23 PM EDT Pulse 62 06/24/2024 4:31 PM EST Temperature 36.3 C (97.4 F) 01/24/2025 1:23 PM EDT Respiratory Rate 18 06/11/2023 2:41 PM EST Oxygen Saturation 99% 06/24/2024 4:31 PM EST Inhaled Oxygen Concentration - - Weight 52.6 kg (116 lb) 01/24/2025 1:23 PM EDT Height 154.9 cm (5' 1 ) 03/18/2024 12:38 PM EST Body Mass Index 21.92 03/18/2024 12:38 PM EST Plan of Treatment Health Maintenance Due Date Last Done Comments Pneumococcal Vaccine: 65+ Years Completed , 04/16/2018, 12/25/2011 Influenza Vaccine Completed 01/24/2025, , 02/18/2023, Additional history exists Insurance [employer] Advance Directives Documents on File Type Date Recorded Patient City Superintendent Expl anation Advance Directives and Living Will 12/20/2022 4:11 PM 2022-06-12 Living Wi ll Power of Slab Inspector 12/20/2022 4:11 PM 06-12 Healthcare Power of Slab Inspector * DNR (Latest Code Status on File) Date Activated Date Inactivated Comments 12/20/2022 4:15 PM Care Teams Design Drafter Relationship Specialty Start Date End Date Meagan Arreaga MD [address] [facility] [place] [address] PCP - General Family Medicine 09/20/22 Michelle Alonso NP [address] [facility] [place] [address] PCP - Ben EMERY 05/05/23 Michelle Alonso NP [address] [facility] [place] [address] Nurse Practitioner Family Medicine 09/20/22
--- OUTSIDE RECORDS SUMMARY | 2025-02-15 13:58 | XMS_ITS | Patient Health Record ---
Author Organization [facility] Address [address] [place], [place] [id number] Care Team Providers Care Test Hole Driller Name Role Phone Hannah Cruz [phone] Allergies Allergen (clinical drug ingredient) Drug/Non Drug Allergy documented on EMR Reaction Allergy Type Onset Date Status Penicillin Unknown Drug Allergy Active Reason For Referral No Information Medications Medication SIG (Take, Route, Frequency, Duration) Notes Start Date End Date Status Rosuvastatin Calcium 10 MG Oral; Duration: 90 Days Active Escitalopram Oxalate 20 MG Oral; Duration: 90 Days Active Carvedilol 6.25 MG Oral; Duration: 90 Days Active Lisinopril 10 MG Oral; Duration: 30 Days Active Iron 12/01/2023 Active Plan Of Treatment No Information Insurance Providers Payer Name Payer Address Payer Phone Subscriber Number Group Number Insured Name Patient Relationship to Insured Coverage Start Date Coverage End Date [employer] [facility] [address] [address] [place] [phone] [id number] Kelsie Rico Self - patient is the insured 4
--- NOTE | 2025-03-22 09:45 | PM.WCHP ---
Wound Care H&P: HPI History of Present Illness Narrative: The patient is a pleasant 89-year-old female who presents for routine nail care and callus management. The patient has several painful toenails that are painful. The patient states she likes to go barefoot around the house. She does not have history of diabetes and has never smoked. Exam Narrative: Exam Narrative: Derm: Skin is diffusely dry. Toenails 1 through 10 are elongated, thickened, and mycotic. Hemosiderin staining noted on BLE. Vascular: Left PT pulses nonpalpable. The right PT pulse is faintly palpable. DP pulses are 1/4 bilaterally. Capillary refill is brisk. Digital hair is absent. Neuro: Monofilament testing revealed absent sensation in 5/5 tested areas on each foot. Vibratory sensation is absent. Achilles deep tendon reflexes are absent bilaterally. MSK: Fat pad atrophy noted bilaterally. No gross deformity otherwise. Assessment and Plan Assessment and Plan (1) Tinea unguium: (2) Diminished pulses in lower extremity: Plan The patient is a pleasant 89-year-old female with physical examination consistent with peripheral neuropathy. Routine nail care performed. Follow up in 3 months or as needed. Acute Procedures Podiatry Nail Debridement Class B Findings Absent posterior tibial pulse: left Advanced trophic changes as evidenced by any three of the following: decreased hair growth, nail changes (thickening), pigmentary changes (discoloring) and skin texture (thin or shiny) Class C Findings Claudication: No Temperature changes: No Edema: Yes Nail debridement paresthesia (abnormal spontaneous sensations in the feet): No Burning: No Qualifies If: Qualifiers If:: A patient qualifies for nail debridement if they have: 1 class A finding (Q7) 2 class B findings (Q8) OR 1 class B & 2 class C findings in addition to a primary condition (Q9) Nail Procedure Nail Procedure Time out: Yes Nail procedure: other (Nail debridement toes 1 through 10) Number of affected nails: 10 Location (toes): left and right Procedure successful: Yes Patient tolerated procedure: well and no complications Additional comments: Toenails 1 through 10 were sharply debrided with nail nippers without incident.
== END 2025-02-15 13:52 | disposition home or self-care (01) ==
LOC: WC 13:52
PROVIDERS: PCP Family Medicine; Visit Provider Physician Assistant
DX: B35.1 Tinea unguium (principal); R09.89 Other specified symptoms and signs involving the circulatory and respiratory systems; G62.9 Polyneuropathy, unspecified; R60.0 Localized edema; M79.675 Pain in left toe(s); M79.674 Pain in right toe(s)
CPT/HCPCS: 11721

== ENCOUNTER 2025-04-21 13:44 | Outpatient (OUT) | payer MEDICARE, SELFPAY ==
--- OUTSIDE RECORDS SUMMARY | 2024-06-17 09:00 | XMS_ITS ---
Author Organization [facility] in [place] Address [address] [place] [address] Care Team Providers Care Wardrobe Specialist Name Role Phone None, Unknown or Primary Care Provider Unavailab Cat Santillan Unavailable [phone] REASON FOR VISIT NAIL CARE Encounters Encounter Location Date Provider Diagnosis [facility] (PODIATRY) [address] [place] [address] [place] [address] 06/17/2024 Cat Larsen Plan Of Treatment No Information Progress Notes * Kelsie RICODOB:1935 (89 yo F)Acc No.[id number]:06/17/2024 UNLOCKED PROGRESS NOTE Nurse Visit Patient: Kelsie FRANCO :?ANAM NeilCDOB:1935???Age:88 Y ???Sex:FemaleDate:06/17/2024Phone:[phone]:[phone] [id number]:Unknown or NoneCheck In:01:52 PM ESTCheck Out:02:31 PM EST Subjective: * Chief Complaints: * 1 . NAIL CARE. * Medical History: Objective: * Vitals: Assessment: Plan: * Treatment: * * Electronic signature of Cat Larsen PA-C on 04/21/2025 at 01:47 PM ESTSign off status: PendingVisit Status:?CHK (Check Out) * Provider: Eden Larsen PA-C Date: 0 06/17/2024 Generated for Printing/Faxing/eTransmitting on:?04/21/2025 01:47 PM EST
--- OUTSIDE RECORDS SUMMARY | 2025-04-14 14:15 | XMS_ITS | Encounter Summary ---
Author Organization [facility] Sys tem Address [id number] [address] [place] [address] Care Team Providers Care Director Of Music Name Role Phone Meagan Arreaga MD Primary Care Provider [phone] Reason for Visit * ReasonCommentsFollow-upEST PT 6MO F/U L/S LLD ECHO DONE SCHED W/PT Encounter Details DateTypeDepartmentCare Team (Latest Contact Info)Kggwzubrljh18/11/2025 2:15 PM ESTOffice Visit [facility] [address] [place] [id number] Arabella Garcia, WIRE STITCHER-TOOL MAINTENANCE WORKER [address] [place] [id number] Parish Echavarria MD [address] [place], [place] [id number] Atherosclerosis of stillaguamish coronary artery of stillaguamish heart without angina pectoris (Primary Dx); Ischemic cardiomyopathy; Presence of drug-eluting stent in left circumflex coronary artery; Primary hypertension Social History Tobacco UseTypesPacks/DayYears UsedDateSmoking Tobacco: NeverSmokeless Tobacco: NeverAlcohol UseStandard Drinks/WeekCommentsYes0 (1 standard drink = 0.6 oz pure alcohol)one drink twice a weekAHC UtilitiesAnswerDate RecordedIn the past 12 months has the Celly, gas, oil, or water [employer] threatened to shut off services in your home?No12/23/2024PRAPARE - TransportationAnswerDate RecordedIn the past 12 months, has lack of transportation kept you from medical appointments or from getting medications?No04/26/2024In the past 12 months, has lack of transportation kept you from meetings, work, or from getting things needed for daily living?No4AUDIT-CAnswerDate RecordedQ1: How often do you have a drink containing alcohol?Never04/14/2025Q2: How many drinks containing alcohol do you have on a typical day when you are drinking?Patient does not drink04/14/2025Q3: How often do you have six or more drinks on one occasion?Never04/14/2025Housing InstabilityAnswerDate RecordedAre you worried or concerned that in the next two months you may not have stable housing that you own, rent or stay in as a part of a household?No4ChildcareAnswerDate JpymgyqoEvdqyrxwmQsvwxkn20/12/2019EmploymentAnswerDate RecordedEmploymentUnknown 10/14/2018Hunger ScreeningAnswerDate RecordedWithin the past 12 months we worried whether our food would run out before we got money to buy more.Never True04/14/2025Within the past 12 months the food we bought just didn't last and we didn't have money to get more.Never True04/14/2025Purpose - LifeAnswerDate RecordedPurpose and direction in sohdVgxvigt65/11/2021CommentsNoSex and Gender InformationValueDate RecordedSex Assigned at BirthNot on fileLegal Sex Oruvcw1312/08/2014 11:51 AM EDTGender IdentityNot on fileSexual OrientationNot on filedocumented as of this encounter Last Filed Vital Signs Vital SignReadingTime TakenCommentsBlood Ctpkqmuq656/7204/14/2025 2:29 PM EST Ymjad316604/14/2025 2:29 PM ESTTemperature--Respiratory Rate--Oxygen Bdnxmylfhz07% 04/14/2025 2:29 PM ESTInhaled Oxygen Concentration--Efeiyl49.3 kg (122 lb) 04/14/2025 2:29 PM CFRJtkarj879.5 cm (5' 2 )04/14/2025 2:29 PM ESTBody Mass Index22.31106/15/2024 2:29 PM ESTdocumented in this encounter Functional Status * BPAnswerDate of SgdtrtmpvtOsftau350/7204/14/2025 2:29 PM Nat Huertas CMA * PulseAnswerDate of VrjkvrqjzsNddqjd5068 2:29 PM Nat Huertas CMA * QzA5VapyyrGudk of QfhcmvngkwQxhquw2935/11/2025 2:29 PM Nat Huertas CMA * HeightAnswerDate of HigribiqqhPzwbds9525/11/2025 2:29 PM Nat Huertas CMA * WeightAnswerDate of PuaftfvbicHurbdx841386/11/2025 2:29 PM Nat Huertas CMA * Food InsecurityQuestionAnswerDate of AssessmentAuthorWithin the past 12 months the food we bought just didn't last and we didn't have money to get more.Never True04/14/2025 2:33 PM Nat Huertas CMAWithin the past 12 months we worried whether our food would run out before we got money to buy more.Never True 04/14/2025 2:33 PM Nat Huertas CMA * BEE (kcal)AnswerDate of FzkstndcqrPwgbzf490368/11/2025 2:29 PM Nat Huertas CMA * BSA (Calculated - sq m)AnswerDate of AssessmentAuthor1.5612 2:29 PM Nat Huertas CMA * BMI (Calculated)AnswerDate of LqwjjxulvdLxqxxo08.312 2:29 PM Nat Huertas CMA * AUDIT-C ScoreAnswerDate of FhvpvmhufaYrluux779/11/2025 2:33 PM Nat Huertas CMA * Alcohol UseQuestionAnswerDate of AssessmentAuthorQ1: How often do you have a drink containing alcohol?Never04/14/2025 2:33 PM Nat Huertas CMAQ2: How many drinks containing alcohol do you have on a typical day when you are drinking?Patient does not drink04/14/2025 2:33 PM ESTFeld, Nat, CMAQ3: How often do you have six or more drinks on one occasion?Never04/14/2025 2:33 PM ESTFeld, Nat, POLYMERIZATION ENGINEER * Weight in (lb) to have BMI = 25AnswerDate of ZiprnkhfveWrpnfh359. 2:29 PM ESTFeld, Nat, POLYMERIZATION ENGINEER * BPAnswerDate of IrxcxnonalPlpsrv187/7204/14/2025 2:29 PM ESTFeld, Nat, POLYMERIZATION ENGINEER * PulseAnswerDate of RktrrhotkzCjiczr4759/11/2025 2:29 PM ESTFeld, Nat, POLYMERIZATION ENGINEER * WhY3PxrunkNhkc of IrrjflhmrgJuqiip5993/11/2025 2:29 PM ESTFeld, Nat, POLYMERIZATION ENGINEER * HeightAnswerDate of HsvjuqvauyWfawtr1416/11/2025 2:29 PM ESTFeld, Nat, POLYMERIZATION ENGINEER * WeightAnswerDate of DndbvfuljzKtvkkz955373/11/2025 2:29 PM ESTFeld, Nat, POLYMERIZATION ENGINEER * BEE (kcal)AnswerDate of WabwswdaksQlqjtr609385/11/2025 2:29 PM ESTFeld, Nat, POLYMERIZATION ENGINEER * BSA (Calculated - sq m)AnswerDate of AssessmentAuthor1.56106/15/2024 2:29 PM ESTFeld, Nat, POLYMERIZATION ENGINEER * BMI (Calculated)AnswerDate of MahokaqacyHbeubb04.312 2:29 PM ESTFeld, Nat, POLYMERIZATION ENGINEER * Weight in (lb) to have BMI = 25AnswerDate of WfcisrimfsBdvfzf182. 2:29 PM ESTFeld, Nat, POLYMERIZATION ENGINEER documented as of this encounter Mental Status * BPAnswerEntry RpusUtiudi900 2:29 PM ESTFeld, Nat, POLYMERIZATION ENGINEER * PulseAnswerEntry RlvlJjjsli4233/11/2025 2:29 PM ESTFeld, Nat, POLYMERIZATION ENGINEER * SkY6NuksuyTtqmk LtciBtxqbv9783/11/2025 2:29 PM ESTFeld, Nat, POLYMERIZATION ENGINEER documented in this encounter Progress Notes * Parish Echavarria MD - 04/14/2025 2:15 PM EST Kelsie Rico Date of visit: 04/14/2025 Date of : 1935 Age: 89 y.o. 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 Ischemic cardiomyopathy Presence of drug-eluting stent in left circumflex coronary artery ISTAP type 2 skin tear of right lower extremity Subdural hematoma (CMS-HCC) Hypertension Closed fracture of proximal end of ulna Postoperative anemia Thrombocytopenia Hammer toe Sequela of ischemic cerebral infarction Infected wound Leg edema, left SIRS (systemic inflammatory response syndrome) (CMS-HCC) Iron deficiency anemia secondary to inadequate dietary iron intake Elevated LFTs Mixed hyperlipidemia Allergies Allergen Reactions Bactrim [Sulfamethoxazole-Trimethoprim] Nausea Penicillins Hives Current Outpatient Medications Medication Sig Dispense Refill acetaminophen (TYLENOL EXTRA STRENGTH) 500 mg tablet Take 1 tablet (500 mg total) by mouth every 6 (six) hours as needed for pain. 30 tablet 0 amLODIPine (NORVASC) 2.5 mg tablet Take 1 tablet (2.5 mg total) by mouth in the morning. 90 tablet 3 ascorbic acid, vitamin C, (VITAMIN C) 1000 mg tablet Take 1 tablet (1,000 mg total) by mouth in themorning. aspirin 81 mg Take 1 tablet (81 mg total) by mouth in the morning. B complex-vitamin C-folic acid (NEPHROCAP) 1 mg capsule Take 1 capsule by mouth in the morning. busPIRone (BUSPAR) 5 mg tablet Take 1 tablet (5 mg total) by mouth in the morning and 1 tablet (5 mg total) before bedtime. carvediloL (COREG) 6.25 mg tablet Take 1 tablet (6.25 mg total) by mouth in the morning and 1 tablet (6.25 mg total) in the evening. Take with meals. 180 tablet 3 cholecalciferol, vitamin D3, (VITAMIN D3) 25 mcg (1,000 unit) capsule Take 1 capsule (1,000 Units total) by mouth in the morning. escitalopram (LEXAPRO) 20 mg tablet Take 1 tablet (20 mg total) by mouth in the morning. ferrous sulfate 325 (65 FE) mg tablet Take 1 tablet (325 mg total) by mouth in the morning and 1 tablet (325 mg total) in the evening. Take with meals. 60 tablet 2 FLUTICASONE PROPIONATE NASL Administer into each nostril. lisinopriL (PRINIVIL,ZESTRIL) 10 mg tablet Take 1 tablet (10 mg total) by mouth in the morning. 30 tablet 1 dbhlmbqu-fmth-QD-calcium &mins (THERAGRAN-M) 9 mg iron-400 mcg tablet Take 1 tablet by mouth inthe morning. pseudoephedrine/acetaminophen (SINUS HEADACHE DEGONGESTANT ORAL) Take by mouth. rosuvastatin (CRESTOR) 10 mg tablet Take 1 tablet (10 mg total) by mouth in the morning. vit A/vit C/vit E/zinc/copper (PRESERVISION AREDS ORAL) Take by mouth. nitroglycerin (NITROSTAT) 0.[address] 1 tablet (0.4 mg total) under the tongue every 5 (five) minutes as needed for chest pain. 25 tablet 3 No current facility-administered medications for this visit. Chief Complaint Patient presents with Follow-up EST PT 6MO F/U L/S LLD ECHO DONE SCHED W/PT History of Present Illness I had the pleasure of seeing Kelsie here at our cardiology office. She is a 89-year-old female whom I am seeing for the 1st time she is accompanied today by her 2 daughters. 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 She did have an episode of chest pain the other day which was relieved with 1 sublingual nitroglycerin. The daughters unsure if the nitro was but thinks he may have had the nitro for some time. She states she has not had any recurrence of her symptoms. She is sitting here comfortably in no apparent distress. 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 Cataract CHF (congestive heart failure) ([facility]) Depression GERD (gastroesophageal reflux disease) Hypertension Memory loss Myocardial infarction ([facility]) 2019 Recurrent major depressive disorder, in full remission Subdural hematoma ([facility]) 12/23/2021 fall Visual impairment No data recorded No data recorded No data recorded Past Surgical History: Procedure Laterality Date BLADDER SURGERY CARDIAC CATHETERIZATION SECTION CHOLECYSTECTOMY EXTRACTION CATARACT INTRAOCULAR LENS Right 01/30/2023 Performed by Jessica Rhodes MD at [facility] EXTRACTION CATARACT INTRAOCULAR LENS Left 01/09/2023 Performed by Jessica Rhodes MD at [facility] HYSTERECTOMY OPEN REDUCTION INTERNAL FIXATION HIP SCREW Right 05/29/2022 Performed by Arpan Gallo DO at [facility] Family History Problem Relation Age of Onset Tuberculosis Mother Kidney failure Father Heart disease Maternal Grandfather Social History Socioeconomic History Marital status: Spouse name: Not on file Number of children: Not on file Years of education: Not on file Highest education level: Not on file Occupational History Not on file Tobacco Use Smoking status: Never Smokeless tobacco: Never Vaping Use Vaping status: Never Used Substance and Sexual Activity Alcohol use: Yes Comment: one drink twice a week Drug use: Never Sexual activity: Defer Partners: Male Other Topics Concern Caffeine Use Yes Social History Narrative Not on file Social Drivers of Health Financial Resource Strain: Not on file Food Insecurity: No Food Insecurity (04/14/2025) Hunger Screening Food Insecurity - Worry: Never True Food Insecurity - Inability: Never True Transportation Needs: No Transportation Needs (04/26/2024) PRAPARE - Transportation Lack of Transportation (Medical): No Lack of Transportation (Non-Medical): No Physical Activity: Not on file Stress: Not on file Social Connections: Not on file Interpersonal Safety: Not At Risk (04/26/2024) Humiliation, Afraid, Rape, and Kick questionnaire Fear of Current or Ex-Partner: No Emotionally Abused: No Physically Abused: No Sexually Abused: No Housing Instability: Low Risk (04/26/2024) Housing Instability Housing Instability: No Review of Systems Review of Systems Constitutional: Positive for chills and malaise/fatigue. HENT: Negative. Eyes: Positive for blurred vision. Cardiovascular: Positive for chest pain. Respiratory: Positive for cough. Endocrine: Negative. Hematologic/Lymphatic: Bruises/bleeds easily. Skin: Negative. Musculoskeletal: Positive for back pain. Gastrointestinal: Negative. Genitourinary: Negative. Neurological: Positive for dizziness and light-headedness. Psychiatric/Behavioral: Positive for depression. The patient is nervous/anxious. Allergic/Immunologic: Negative. Vascular: Negative. CARDIOVASCULAR: Please review HPI. Physical Examination General appearance: Alert, oriented and cooperative. In no acute distress. Skin: Warm and dry to touch. Head: Normocephalic, without obvious abnormality, atraumatic. Ears, Nose, Mouth, Throat: Throat clear without erythema or exudate. Dentition intact. Eyes: Conjunctivae unremarkable, EOM intact. Neck: No JVD, No carotid bruit. Neck supple, trachea midline. Respiratory: Clear to auscultation bilaterally, no use of accessory muscles. Cardiovascular: RRR with normal S1 and S2 with no murmurs. Gastrointestinal: Soft, non-tender. Bowel sounds normal. Musculoskeletal: No peripheral edema. Neurologic: Oriented to time, person and place, affect appropriate. No focal/major motor defects noted. Psychiatric: Appropriate mood, memory and judgement. VITAL SIGNS: BP 150/72 Pulse 51 Ht 157.5 cm (5' 2 ) Wt 55.3 kg (122 lb) SpO2 99% BMI 22.31 kg/m?? Orders Placed or Reconciled This Encounter Medications nitroglycerin (NITROSTAT) 0.4 MG SL tablet Sig: Place 1 tablet (0.4 mg total) under the tongue every 5 (five) minutes as needed for chest pain. Dispense: 25 tablet Refill: 3 Medications Discontinued During This Encounter Medication Reason coffee xt/phosphatidyl serine (NEURIVA ORIGINAL ORAL) IMPRESSIONS/PLAN 1. Atherosclerosis of stillaguamish coronary artery of stillaguamish heart without angina pectoris - POCT EKG 2. Ischemic cardiomyopathy 3. Presence of drug-eluting stent in left circumflex coronary artery 4. Primary hypertension History of coronary artery disease EKG done today does not show acute ST or T- wave changes. In his unchanged from prior. Given her significant comorbidities I think conservative management is warranted here. I have made fresh nitroglycerin available to her. We will send in a prescription to her pharmacy. The daughters will notify us if she has recurring that more often. Can consider the addition o f isosorbide mononitrate as well. TODAYS ORDERS Orders Placed This Encounter Procedures POCT EKG FOLLOW UP Return in about 6 months (around 10/13/2025). PCP: Meagan Arreaga MD Referring Physician: Meagan Arreaga MD [address] [place] [address] documented in this encounter Plan of Treatment Not on file documented as of this encounter Goals GoalPatient Goal TypeAssociated ProblemsRecent ProgressPatient-Stated?Author home per patient & her daughter Alma Varsha Reyes, CLINICAL APPLICATION CONSULTANT Note: Evaluation of progress towards goal: under assessment; goal of home going documented as of this encounter Procedures Procedure NamePriorityDate/TimeAssociated DiagnosisCommentsPOCT EKGRoutine 04/14/2025 Atherosclerosis of stillaguamish coronary artery of stillaguamish heart without angina pectoris documented in this encounter Results * POCT EKG (04/14/2025) Narrative Authorizing ProviderResult TypeResult StatusBrtru Echavarria MDECG ORDERABLES Edited Result - FinalPerforming OrganizationAddressCity/State/ZIP CodePhone Number MANUALLY TRANSCRIBED RESULTS documented in this encounter Visit Diagnoses Diagnosis Atherosclerosis of stillaguamish coronary artery of stillaguamish heart without angina pectoris- Primary Ischemic cardiomyopathy Other specified forms of chronic ischemic heart disease Presence of drug-eluting stent in left circumflex coronary artery Primary hypertension Unspecified essential hypertension documented in this encounter Care Teams Team MemberRelationshipSpecialtyStart DateEnd Date Meagan Arreaga MD [address] [place] [address] PCP - GeneralFamily Medicine10/22/18documented as of this encounter
--- OUTSIDE RECORDS SUMMARY | 2025-04-21 13:47 | XMS_ITS | Encounter Summary ---
Author Organization [facility] Address [address] [place] [address] Care Team Providers Care Pole Peeling Machine Operator Helper Name Role Phone Meagan Arreaga MD Primary Care Provider [phone] Michelle Oneill AXMINSTER WEAVER Unavailable [phone] Michelle Oneill AXMINSTER WEAVER Unavailable [phone] Encounter Details DateTypeDepartmentCare Team (Latest Contact Info)Tkvoukalyzn12/12/2025Patient Outreach [facility] [address] [place] [address] Meagan Renee, MATILDA [address] [place] [address] Social History Tobacco UseTypesPacks/DayYears UsedDateSmoking Tobacco: NeverSmokeless Tobacco: NeverAlcohol UseStandard Drinks/WeekCommentsNot Currently0 (1 standard drink = 0.6 oz pure alcohol)caffeine: 1 cups per dayPHQ-2AnswerDate RecordedPatient Health Questionnaire-2 Fhsfc7314CommentsUnknownSex and Gender InformationValueDate RecordedSex Assigned at BirthNot on fileLegal SexFemale 07/17/2022 8:27 PM EDTGender IdentityNot on fileSexual OrientationNot on file documented as of this encounter Progress Notes * Meagan Renee RN - 04/15/2025 1:10 PM EST <April 15, 2025, 13:11 - Meagan Renee RN> Call rec from bonnie Mora. She reported that pt saw trades helper yesterday and had a good checkup. She also went and had urine test done at hospital. She asked about results. Advised will followup with Lorelei. She vu. * Lorelei Rodriguez NP - 04/15/2025 1:10 PM EST She has some leuks, no nitrates, as she is having symptoms will go ahead and treat. Push fluids * Meagan Renee RN - 04/15/2025 1:10 PM EST Rec incoming message from Lorelei: She has some leuks, no nitrates, as she is having symptoms will go ahead and treat. Push fluids <April 15, 2025, 14:35 - Meagan Renee RN> Chart reviewed, noted Macrobid sent into [facility]. Call to daughter, advised of above. She vu. She will have pt push fluids and start med. Enc to call for concerns. She vu. * Meagan Renee RN - 04/15/2025 1:10 PM EST Rec culture results - no growth. Orders from Lorelei: no antibiotics! increase fluids <April 15, 2025, 16:25 - Meagan Renee RN> Call to daughter Abby, neo detailed message with instructions as listed above. Asked for returned call for questions. documented in this encounter Miscellaneous Notes * Addendum Note - Lorelei Rodriguez NP - 04/15/2025 1:10 PM ESTAddended by: LORELEI RODRIGUEZ on: 04/15/2025 02:19 PM Modules accepted: Orders documented in this encounter Plan of Treatment Not on file documented as of this encounter Visit Diagnoses Diagnosis Congestive heart failure, unspecified HF chronicity, unspecified heart failure type (HCC)- Primary Urine frequency Urinary incontinence, unspecified type Mild dementia without behavioral disturbance, psychotic disturbance, mood disturbance, or anxiety, unspecified dementia type (HCC) Acute cystitis with hematuria documented in this encounter Additional Health Concerns AssessmentNoted TimePHQ-9 Depression Total Score: 6009/09/2023 1:00 PM EDT documented as of this encounter Care Teams Team MemberRelationshipSpecialtyStart DateEnd Date Meagan Arreaga MD [address] [place] [address] [facility] - [facility] Michelle Oneill NP [address] [place] [address] PCP - Ben EMERY05/05/23 Michelle Oneill NP [address] [place] [address] Nurse PractitionerFamily Medicine09/20/22documented as of this encounter
--- OUTSIDE RECORDS SUMMARY | 2025-04-21 13:47 | XMS_ITS | Patient Health Record ---
Author Organization [facility] [place] Address [address] [place] [place] [address] Care Team Providers Care Hat Brim And Crown Laminating Operator Name Role Phone None, Unknown or Primary Care Provider Unavailab Cat Santillan Unavailable [phone] Allergies Allergen (clinical drug ingredient) Drug/Non Drug Allergy documented on EMR Reaction Allergy Type Onset Date Status PenicillinUnknownDrug AllergyActive Reason For Referral No Information Medications Medication SIG (Take, Route, Frequency, Duration) Notes Start Date End Date Status Lisinopril ActiveRosuvastatin CalciumActivePreserVision AREDSActiveEscitalopram &Wuxrhmt-F0-H44J57-MBjkvdpOladLeuhtgdgoNMVaox HClActiveAspirinActiveCarvedilol ActiveClindamycin HClActive Social History Tobacco Use: Social History Observation Description Date Details (start date - stop date) Never Smoker NA - NA Tobacco Control (Standard) Question Answer Notes Tobacco use: Nonsmoker Problems Problem Type SNOMED Code ICD Code Onset Dates Problem Status W/U Status Risk Notes Problem Acquired hammer toe of right foot (7653782314515333) Other hammer toe(s) (acquired), right foot (M20.41) ActiveconfirmedProblemAcquired hammer toe of left foot (2496727503509224)Other hammer toe(s) (acquired), left foot (M20.42)Activeconfirmed Encounters Encounter Location Date Provider Diagnosis [facility] (PODIATRY) [address] [place], [place] [address] [address] 06/17/2024 Cat Larsen Plan Of Treatment No Information Insurance Providers Payer Name Payer Address Payer Phone Subscriber Number Group Number Insured Name Patient Relationship to Insured Coverage Start Date Coverage End Date [employer] DUAL ADV PRIMARY MEDICARE [address] [place] [address] [id number] [facility] Kelsie Rico Self - patient is the insured Medical (General) History Medical History History ICD Code arthritis heart diseasehypertensionSurgical History Surgery Date(Month/Year) hysterectomy heartcholecystectomyhip surgeryshoulder/post dislocation
--- OUTSIDE RECORDS SUMMARY | 2025-04-21 13:47 | XMS_ITS | Clinical Summary ---
Author Organization [employer] Address [id number] [address] [place] [address] Care Team Providers Care Friction Welding Machine Operator Name Role Phone Meagan Arreaga MD Primary Care Provider [phone] Allergies Active AllergyReactionsCriticalityNoted DateComments Sulfamethoxazole-ZxfyyfqgvvibVpfdhaWoyk28/01/8933PhrktvrdwmnWtnerVkee06/01/2019 Medications MedicationSigDispense QuantityRefillsLast FilledStart DateEnd DateStatus escitalopram (LEXAPRO) 20 mg tablet Take 1 tablet (20 mg total) by mouth in the morning.Active cholecalciferol, vitamin D3, (VITAMIN D3) 25 mcg (1,000 unit) capsule Take 1 capsule (1,000 Units total) by mouth in the morning.Active acetaminophen (TYLENOL EXTRA STRENGTH) 500 mg tablet Take 1 tablet (500 mg total) by mouth every 6 (six) hours as needed for pain. 30 tablet 12/27/2021ctive ferrous sulfate 325 (65 FE) mg tablet Take 1 tablet (325 mg total) by mouth in the morning and 1 tablet (325 mg total) in the evening. Take with meals. 60 tablet ctive aspirin 81 mg Take 1 tablet (81 mg total) by mouth in the morning.Active lisinopriL (PRINIVIL,ZESTRIL) 10 mg tablet Take 1 tablet (10 mg total) by mouth in the morning. 30 tablet ctive busPIRone (BUSPAR) 5 mg tablet Take 1 tablet (5 mg total) by mouth in the morning and 1 tablet (5 mg total) before bedtime.Active FLUTICASONE PROPIONATE NASL Administer into each nostril.Active pseudoephedrine/acetaminophen (SINUS HEADACHE DEGONGESTANT ORAL) Take by mouth.Active rosuvastatin (CRESTOR) 10 mg tablet Take 1 tablet (10 mg total) by mouth in the morning.Active vit A/vit C/vit E/zinc/copper (PRESERVISION AREDS ORAL) Take by mouth.Active ascorbic acid, vitamin C, (VITAMIN C) 1000 mg tablet Take 1 tablet (1,000 mg total) by mouth in the morning.Active B complex-vitamin C-folic acid (NEPHROCAP) 1 mg capsule Take 1 capsule by mouth in the morning.Active dzpiqqek-vtxw-WZ-calcium &mins (THERAGRAN-M) 9 mg iron-400 mcg tablet Take 1 tablet by mouth in the morning.Active amLODIPine (NORVASC) 2.5 mg tablet Take 1 tablet (2.5 mg total) by mouth in the morning. 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 Take with meals. 180 tablet 5Active nitroglycerin (NITROSTAT) 0.[address] 1 tablet (0.4 mg total) under the tongue every 5 (five) minutes as needed for chest pain. 25 tablet 5Active coffee xt/phosphatidyl serine (NEURIVA ORIGINAL ORAL) Take by mouth.04/15/2025Discontinued Active Problems ProblemNoted DateDiagnosed DateMixed azotekcjlmhawa20/01/2025Iron deficiency anemia secondary to inadequate dietary iron slfxci1204/27/2024Elevated LFTs 04/27/2024SIRS (systemic inflammatory response syndrome)04/26/2024Hammer toe 03/26/2024Infected wound03/26/2024Leg edema, left03/26/2024Sequela of ischemic cerebral xrfzgwxzav53/28/2024ostoperative pubceh6105/31/2022Thrombocytopenia 05/31/2022losed fracture of proximal end of ulna05/30/2022Subdural hematoma 12/23/2021ISTAP type 2 skin tear of right lower ayuzezgye43/02/2021Ischemic zxtfuskiacmiqq72/06/2020Presence of drug-eluting stent in left circumflex coronary mzsrib8205/10/2019 Overview (05/10/2019): [place] November [address] Reyna. Recurrent major depressive disorder, in full remissionAtherosclerotic heart disease of manzanita coronary artery without angina pectorisHypertension Resolved Problems ProblemNoted DateDiagnosed DateResolved DsipTgpilcdfbnlocetl47/24/202405/05/2024 Closed fracture of right hip, initial kjairstsq03/hronic systolic congestive heart hvnqreo37/STEMI (ST elevation myocardial infarction) Encounters DateTypeDepartmentCare KvpiToxwoefblcv80/11/2025 2:15 PM ESTOffice Visit [facility] [address] [place] [address] Arabella Garcia, CAREER RESOURCE TECHNICIAN-Parish Ochoa MD 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 (Primary Dx); Ischemic cardiomyopathy; Presence of drug-eluting stent in left circumflex coronary artery; Primary bqhkozftbnak84/11/6526Hszwzy21/10/2025Telephone [facility] [address] [place] [address] Nat Milian CMA 03/04/2025Telephone [facility] [address] [place] [address] Meagan Forde MA from Last 3 Months Immunizations ImmunizationAdministration DatesNext DueInfluenza High Dose Preservative Free IM 02/10/2019Influenza, High-dose, Tkhuhrrfjetf45/14/2021,01/26/2020Influenza, Injectable, quadrivalent (PF)12/31/2017Pneumococcal Conjugate 13-Valent 04/24/2020Pneumococcal Iwjhypggxjoyvt94/13/2018Td (adult), 5 Lf tetanus toxoid, preservative free, evycdeep82/29/2231Vtmu63/21/2022 Family History Medical HistoryRelationNameCommentsKidney failureFatherHeart diseaseMaternal GrandfatherTuberculosisMotherRelationNameStatusCommentsFatherDeceasedMaternal GrandfatherMotherDeceased Social History Tobacco UseTypesPacks/DayYears UsedDateSmoking Tobacco: NeverSmokeless Tobacco: Never Tobacco Cessation:Counseling Given: Not Answered Alcohol UseStandard Drinks/WeekCommentsYes0 (1 standard drink = 0.6 oz pure alcohol)one drink twice a weekAH UtilitiesAnswerDate RecordedIn the past 12 months has the [employer], gas, oil, or water company threatened to shut off services in your home?No4PRAPARE - TransportationAnswerDate RecordedIn the past 12 months, [...] in as a part of a household?No4ChildcareAnswerDate SgzdyvxdYripfbysuLiwvcod82/12/2019EmploymentAnswerDate RecordedEmploymentUnknown 10/14/2018Hunger ScreeningAnswerDate RecordedWithin the past 12 months we worried whether our food would run out before we got money to buy more.Never True04/14/2025Within the past 12 months the food we bought just didn't last and we didn't have money to get more.Never True04/14/2025Purpose - LifeAnswerDate RecordedPurpose and direction in hsevAmvgvkc25/11/2021CommentsNoSex and Gender InformationValueDate RecordedSex Assigned at BirthNot on fileLegal Sex Chvgsi0912/08/2014 11:51 AM EDTGender IdentityNot on fileSexual OrientationNot on file Last Filed Vital Signs Vital SignReadingTime TakenCommentsBlood Nxoaheyg087/7204/14/2025 2:29 PM EST Bpgps859804/14/2025 2:29 PM ENLFnaoohnicdo52.6 ??C (97.9 ??F)11/21/2024 11:56 AM EDTRespiratory Ocoz193511/21/2024 11:56 AM EDTOxygen Prwcrrrdow56%04/14/2025 2:29 PM ESTInhaled Oxygen Concentration--Auadpd95.3 kg (122 lb)04/14/2025 2:29 PM EST Sjclsy162.5 cm (5' 2 )04/14/2025 2:29 PM ESTBody Mass Index22.31106/15/2024 2:29 PM EST Plan of Treatment Health MaintenanceDue DateLast DoneCommentsDepression Ubuoiufug71/27/1948Zoster (Shingles) Vaccine (1 of 2)09/28/1985Fall Risk Kvjqptrml44/27/2001RSV ( or age 60+ yrs) (1 - 1-dose 75+ series)09/28/2010COVID-19 Vaccine ( season), 02/18/2023, 08/15/2021, Additional history exists Tobacco Tulavsecs45/11/08981306/15/2024DTaP,Tdap and Td Vaccines (2 - Td or Tdap) /, 12/31/2018Influenza AaxhfnoXoaqvewpz25/22/2025, 01/14/2024, 02/18/2023, Additional history exists Goals GoalPatient Goal TypeAssociated ProblemsRecent ProgressPatient-Stated?Author home per patient & her daughter Alma Varsha Reyes LSW Note: Evaluation of progress towards goal: under assessment; goal of home going Medical Devices ImplantedTypeAreaManufacturerDevice IdentifierShelf Expiration DateModel / Serial / LotLens Iol Ultrasert 23.0d - [id number] - [id number] Implanted:Qty: 1 on 01/09/2023 by Jessica Rhodes MD at [facility]: [employer]03/06/2025AU00T0 23.0 / [id number] / NALens Iol Ultrasert 23.0d - [id number] - [id number] Implanted:Qty: 1 on 01/30/2023 by Jessica Rhodes MD at [facility]: [employer]04/22/2025AU00T0 23.0 / [id number] / NAScrew Bn 90mm 16mm 6.5mm 7.9mm 2[address]9mm [facility] Sna - [id number] Implanted:Qty: 1 on 05/29/2022 [facility]: HipDEPUY SYN[employer]ES SALES05/04/2030208.413 / NA / NAScrew Bn 85mm 16mm 6.5mm 7.9mm 2[address]9mm [facility] H - Sna - [id number] Implanted:Qty: 2 on 05/29/2022 by [facility]: HipDEPUY [employer]05/03/2030208.412 / NA / NA Procedures Procedure NamePriorityDate/TimeAssociated DiagnosisCommentsURINALYSISRoutine 04/14/2025 3:08 PM EST Frequency of micturition Unspecified urinary incontinence URINE UXCTFHIZdntqip00/11/2025 3:08 PM EST Frequency of micturition Unspecified urinary incontinence POCT ZQHGhgxgei41/11/2025 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 6:12 PM [facility] LEUKOCYTE ESTERASESmall(A)Nkxajsld04/11/2025 6:12 PM [facility] LABORATORYPROTEINTrace(A)Bujfpjmy61/11/2025 6:12 PM [facility] LABORATORYKETONES (URINE)EmujuhgtQlxlllfu47/11/2025 6:12 PM [facility]ORATORYUROBILINOGEN2 eu/dL(A)<1.1 eu/dL04/14/2025 6:12 PM [facility]ORATORYBILIRUBIN (URINE)NegativeNegative 04/14/2025 6:12 PM [facility]ORATORYBLOOD/HGBNegative Qeyedsbt99/11/2025 6:12 PM [facility]ORATORYMUCOUSPresent (A)None04/14/2025 6:12 PM [facility] LABORATORYR.B.CELLS40 - 6:12 PM [facility] LABORATORYSQUAMOUS EPITHELIUM <10 - 6:12 PM [facility] LABORATORYW.B.CELLS10(H) 0 - 6:12 PM [facility] LABORATORYGLUCOSE (URINE) AtfrubksRwowfmzg85/11/2025 6:12 PM [facility] Specimen (Source)Anatomical Location / LateralityCollection Method / Volume Collection TimeReceived TimeUrineUrine / UnknownCollection / Yfbicno3804/14/2025 3:08 PM EST04/14/2025 3:09 PM EST Narrative Authorizing ProviderResult TypeResult StatusNot In System Ref ProvURINE ORDERABLESFinal ResultPerforming OrganizationAddressCity/State/ZIP CodePhone Number [facility] [address] [place] [address], * Urine culture (04/14/2025 3:08 PM EST)ComponentValueRef RangeTest Method Analysis TimePerformed AtPathologist SignatureCULTURE RESULTSNO GROWTH AT <1000 CFU/mL04/15/2025 1:24 PM [facility] LABORATORYSpecimen (Source)Anatomical Location / LateralityCollection Method / VolumeCollection TimeReceived TimeUrineCollection / Wonufpa7504/14/2025 3:08 PM EST04/14/2025 3:09 PM EST Narrative Authorizing ProviderResult TypeResult StatusNot In System Ref ProvMICROBIOLOGY - GENERAL ORDERABLESFinal ResultPerforming OrganizationAddressCity/State/ZIP Code Phone Number [facility] [address] [place] [address], * POCT EKG (04/14/2025) Narrative Authorizing ProviderResult TypeResult StatusParish Echavarria MDECRodo ORDERABLES Edited Result - FinalPerforming OrganizationAddressty/State/ZIP CodePhone Number MANUALLY TRANSCRIBED RESULTS from Last [address] [place] [address] Advance Directives * Full Code (Latest Code Status on File) Date ActivatedDate ZmtlkbdclswLavlkmub46/23/2024 8:37 PM05/02/2024 3:40 PM * Full Code Date ActivatedDate InactivatedComments05/29/2022 2:38 PM05/31/2022 7:58 PM * Full Code Date ActivatedDate InactivatedComments12/23/2021 6:37 PM12/28/2021 1:00 AM Care Teams Team MemberRelationshipSpecialtyStart DateEnd Date Meagan Arreaga MD [address] [place] [address] PCP - GeneralFamily Medicine10/22/18
--- OUTSIDE RECORDS SUMMARY | 2025-04-21 13:47 | XMS_ITS | Encounter Summary ---
Author Organization [facility] tem Address [id number] [address] [place] [address] Care Team Providers Care Fee Clerk Name Role Phone Meagan Arreaga MD Primary Care Provider [phone] Encounter Details DateTypeDepartmentCare Team (Latest Contact Info)Wbsixljmybg26/10/2025Telephone [facility] [address] [place] [phone] Nat Milian CMA Social History Tobacco UseTypesPacks/DayYears UsedDateSmoking Tobacco: NeverSmokeless Tobacco: NeverAlcohol UseStandard Drinks/WeekCommentsYes0 (1 standard drink = 0.6 oz pure alcohol)one drink twice a weekAH UtilitiesAnswerDate RecordedIn the past 12 months has the electric, gas, oil, or water company threatened [...] in as a part of a household?No4ChildcareAnswerDate ZgxegvfsJjfvmjwdtTxeerwt51/12/2019EmploymentAnswerDate RecordedEmploymentUnknown 10/14/2018Hunger ScreeningAnswerDate RecordedWithin the past 12 months we worried whether our food would run out before we got money to buy more.Never True04/14/2025Within the past 12 months the food we bought just didn't last and we didn't have money to get more.Never True04/14/2025Purpose - LifeAnswerDate RecordedPurpose and direction in qwlyJugkwef06/11/2021CommentsNoSex and Gender InformationValueDate RecordedSex Assigned at BirthNot on fileLegal Sex Zpyseh2712/08/2014 11:51 AM EDTGender IdentityNot on fileSexual OrientationNot on filedocumented as of this encounter Miscellaneous Notes * Telephone Encounter - Nat Milian CMA - 04/13/2025 3:58 PM EST Left message for patient to remind them to bring their most current medication list with them to their appointment. documented in this encounter Plan of Treatment Not on file documented as of this encounter Goals GoalPatient Goal TypeAssociated ProblemsRecent ProgressPatient-Stated?Author home per patient & her daughter Varsha Novak, PROGRAMS MANAGER Note: Evaluation of progress towards goal: under assessment; goal of home going documented as of this encounter Visit Diagnoses Not on filedocumented in this encounter Care Teams Team MemberRelationshipSpecialtyStart DateEnd Meagan Arreaga MD [address] [place] [address] PCP - GeneralFamily Medicine10/22/18documented as of this encounter
--- OUTSIDE RECORDS SUMMARY | 2025-04-21 13:47 | XMS_ITS | Encounter Summary ---
Author Organization [facility] Address [address] [place] [address] Care Team Providers Care Paddle Dyeing Machine Operator Name Role Phone Meagan Arreaga MD Primary Care Provider [phone] Michelle Oneill MUFF WINDER Unavailable [phone] Michelle Oneill MUFF WINDER Unavailable [phone] Encounter Details DateTypeDepartmentCare Team (Latest Contact Info)Rdkcdvnglhd15/10/2025Patient Outreach [facility] [address] [place] [address] Christel Santizo LSW [address] [place] [id number] Social History Tobacco UseTypesPacks/DayYears UsedDateSmoking Tobacco: NeverSmokeless Tobacco: NeverAlcohol UseStandard Drinks/WeekCommentsNot Currently0 (1 standard drink = 0.6 oz pure alcohol)caffeine: 1 cups per dayPHQ-2AnswerDate RecordedPatient Health Questionnaire-2 Rwpfp1224CommentsUnknownSex and Gender InformationValueDate RecordedSex Assigned at BirthNot on fileLegal SexFemale 07/17/2022 8:27 PM EDTGender IdentityNot on fileSexual OrientationNot on file documented as of this encounter Progress Notes * MATTHEW Ellis - 04/13/2025 12:27 PM EST <April 13, 2025, 12:30 - MATTHEW Ellis> Spoke to daughter Abby. She asks if pt can have home visit by MUFF WINDER. Pt is not feeling well and is refusing appt or ED to be evaluated. Abby has a cold and thinks pt may also have cold. She is taking coricidin due to having runny nose and feeling tired. Additionally pt having increased confusion, doesn't know what day it is, having urinary frequency and trouble holding urine. Pt was also given nitroglycerin last night for complaints of chest pain. Pt has been very fixated on her cats lately, and has a break down a few days ago. Pt does not currently have HH. Advised Albertina MUFF WINDER would not be able to see pt this week and unsure if she'd be able to next week. Advised RADAR SYSTEMS ENGINEER would talk to provider to see if we should at least check urine sample, Abby thinks pt would be willing to give sample at home. Teams message sent to Michelle re: confusion and urinary symptoms. <April 13, 2025, 12:59 - MATTHEW Ellis> Per Michelle daughter should call squad if pt is not willing to go to ER based on above symptoms. Called and notified daughter. She is about to go to pt's house and will discuss with her. Urged again that she should call squad if pt is unwilling to go to ER. documented in this encounter Plan of Treatment [...] DateEnd Date Meagan Arreaga MD [address] [place] [address] PCP - GeneralFamily Medicine09/20/22 Michelle Oneill NP [address] [place], [place] [id number] PCP - Ben EMERY05/05/23 Michelle Oneill NP [address] [place], [place] [id number] Nurse PractitionerFamily Medicine09/20/22documented as of this encounter
--- OUTSIDE RECORDS SUMMARY | 2025-04-21 13:47 | XMS_ITS | Clinical Summary ---
Author Organization [facility] Address [address], [address] [place] [address] Care Team Providers Care National Sales Associate Name Role Phone Meagan Jiménez MD Primary Care Pr ovider Allergies Active AllergyReactionsCriticalityNoted DateComments Sulfamethoxazole-Qagrhqmbntbz93/02/0081Awqlayqwoha33/02/2019 Medications MedicationSigDispense QuantityRefillsLast FilledStart DateEnd DateStatus aspirin 81 MG chewable tablet Take 1 tablet by mouth daily 30 tablet Active nitroGLYCERIN (NITROSTAT) 0.4 MG SL tablet up to max of 3 total doses. If no relief after 1 dose, call 911. 25 tablet Active lisinopril (PRINIVIL;ZESTRIL) 2.5 MG tablet Take 1 tablet by mouth daily 30 tablet Active atorvastatin (LIPITOR) 40 MG tablet Take 1 tablet by mouth nightly 30 tablet Active metoprolol tartrate (LOPRESSOR) 50 MG tablet Take 1 tablet by mouth 2 times daily 60 tablet Active furosemide (LASIX) 40 MG tablet Take 1 tablet by mouth daily 60 tablet Active clopidogrel (PLAVIX) 75 MG tablet Take 1 tablet by mouth daily 30 tablet Active Active Problems ProblemNoted DateDiagnosed DateModerate xfeyhynxttid54/08/2019STEMI (ST elevation myocardial infarction)11/02/2018 Social History Tobacco UseTypesPacks/DayYears UsedDateSmoking Tobacco: NeverComments UnknownSex and Gender InformationValueDate RecordedSex Assigned at BirthNot on fileLegal GlqZcmjkw64/01/2019 3:10 PM EDTGender IdentityNot on fileSexual OrientationNot on file Last Filed Vital Signs Vital SignReadingTime TakenCommentsBlood Yyepmzik050/5907 11:55 AM EDT Jhytx235211/09/2018 11:55 AM DLOAvpynrhtxkv91.8 ??C (98.2 ??F)11/09/2018 11:55 AM EDTRespiratory Jmuq468111/09/2018 11:55 AM EDTOxygen Hcecjmbilb217%11/09/2018 11:55 AM EDTInhaled Oxygen Concentration--Yvzmpa63.5 kg (137 lb 12.6 oz) 11/09/2018 5:50 AM XKTNhmequ312.4 cm (5')11/03/2018 8:34 AM EDTBody Mass Index 26.9111/03/2018 8:34 AM EDT Plan of Treatment Not [place] [address] * Guarantor: RicoPrema TypeRelation to PatientDate of BirthPhone Billing AddressPersonal/KqdojdMetp39/27/1936 [facility] [address] [place] [address] Advance Directives TypeDate RecordedPatient RepresentativeExplanationACP-Power of Attorney11/10/2018 3:09 PM * Full Code (Latest Code Status on File) Date ActivatedDate InactivatedComments11/02/2018 5:36 PM11/09/2018 7:14 PM * Full Code Date ActivatedDate InactivatedComments11/02/2018 5:36 PM11/02/2018 5:36 PM Care Teams Team MemberRelationshipSpecialtyStart DateEnd Date Meagan Jiménez MD [address] [place] [address] PCP - GeneralFamily Medicine12/15/18
--- OUTSIDE RECORDS SUMMARY | 2025-04-21 13:47 | XMS_ITS | Encounter Summary ---
Author Organization [facility] Address [address] [place] [address] Care Team Providers Care Business Objects Developer Name Role Phone Meagan Arreaga MD Primary Care Provider [phone] Michelle Oneill [employer] Unavailable [phone] Michelle Oneill [employer] Unavailable [phone] Encounter Details DateTypeDepartmentCare Team (Latest Contact Info)Fyejazbkjec69/11/2025Patient Outreach [facility] [address] [place] [address] Meagan Renee, MATILDA [address] [place] [address] Social History Tobacco UseTypesPacks/DayYears UsedDateSmoking Tobacco: NeverSmokeless Tobacco: NeverAlcohol UseStandard Drinks/WeekCommentsNot Currently0 (1 standard drink = 0.6 oz pure alcohol)caffeine: 1 cups per dayPHQ-2AnswerDate RecordedPatient Health Questionnaire-2 Tukrs9594CommentsUnknownSex and Gender InformationValueDate RecordedSex Assigned at BirthNot on fileLegal SexFemale 07/17/2022 8:27 PM EDTGender IdentityNot on fileSexual OrientationNot on file documented as of this encounter Progress Notes * Meagan Renee RN - 04/14/2025 10:34 AM EST <April 14, 2025, 10:34 - Meagan Renee RN> Call to daughter, Abby. She reported that yesterday she tried to get pt go to the ER and she refused and said that she would not let them touchher. She was in a mood reported Abby. Her brother is home with her and he would call EMS if shegot any worse. Abby reported that pt agreed to go to her cardiology appt today and she asked if pt could stop at the hospital lab and give a urine sample. Advised this would work. Will send order to lab. She vu. She will keep us updated on how things go. She denies needs at this time. Enc to callfor concerns. She vu. <April 14, 2025, 10:58 - Meagan Renee RN> Spoke with Michelle fitzgerald above, order rec for UA/C&S if indicated - ok to send to [facility] lab. Order created and faxed to [facility] lab at [phone]. documented in this encounter Plan of Treatment NameTypePriorityAssociated DiagnosesOrder ScheduleURINALYSIS, COMPLETE W/REFLEX TO CULTURELabRoutine Urine frequency Urinary incontinence, unspecified type Mild dementia without behavioral disturbance, psychotic disturbance, mood disturbance, or anxiety, unspecified dementia type (HCC) Expected: 04/14/2025 (Approximate), Expires: 04/14/2026documented as of this encounter Visit Diagnoses Diagnosis [...] DateEnd Date Meagan Arreaga MD [address] [place] [address] PCP - GeneralFamily Medicine09/20/22 Michelle Oneill NP [address] [place] [address] PCP - Ben EMERY05/05/23 Michelle Oneill NP [address] [place] [address] Nurse PractitionerFamily Medicine09/20/22documented as of this encounter
--- OUTSIDE RECORDS SUMMARY | 2025-04-21 13:47 | XMS_ITS | Encounter Summary ---
Author Organization [employer] [facility] tem Address [id number] [address] [place] [address] Care Team Providers Care Die Sinking Machine Operator Name Role Phone Meagan Arreaga MD Primary Care Provider [phone] Encounter Details DateTypeDepartmentCare Team (Latest Contact Info)Zddpeppvzrt12/11/2025Travel Social History Tobacco UseTypesPacks/DayYears UsedDateSmoking Tobacco: NeverSmokeless Tobacco: NeverAlcohol UseStandard Drinks/WeekCommentsYes0 (1 standard drink = 0.6 oz pure alcohol)one drink twice a weekAHC UtilitiesAnswerDate RecordedIn the past 12 months has the [employer], gas, oil, or water [employer] threatened to shut off services in your [...] in as a part of a household?No4ChildcareAnswerDate PmwildfxOlszhwsrxBwtsbft02/12/2019EmploymentAnswerDate RecordedEmploymentUnknown 10/14/2018Hunger ScreeningAnswerDate RecordedWithin the past 12 months we worried whether our food would run out before we got money to buy more.Never True04/14/2025Within the past 12 months the food we bought just didn't last and we didn't have money to get more.Never True04/14/2025Purpose - LifeAnswerDate RecordedPurpose and direction in lkgwRioiruf71/11/2021CommentsNoSex and Gender InformationValueDate RecordedSex Assigned at BirthNot on fileLegal Sex [place]2112/08/2014 11:51 AM EDTGender IdentityNot on fileSexual OrientationNot on filedocumented as of this encounter Plan of Treatment Not on file documented as of this encounter Goals GoalPatient Goal TypeAssociated ProblemsRecent ProgressPatient-Stated?Author home per patient & her daughter Varsha Novak, MATTHEW Note: Evaluation of progress towards goal: under assessment; goal of home going documented as of this encounter Visit Diagnoses Not on filedocumented in this encounter Care Teams Team MemberRelationshipSpecialtyStart DateEnd Date Meagan Arreaga MD [address] [place] [address] PCP - GeneralFamily Medicine10/22/18documented as of this encounter
--- OUTSIDE RECORDS SUMMARY | 2025-04-21 13:47 | XMS_ITS | Encounter Summary ---
Author Organization [facility] Address [address] [facility] [place] [address] Care Team Providers Care Life Scientists Name Role Phone Meagan Arreaga MD Primary Care Provider [phone] Michelle Oneill NP Unavailable [phone] Michelle Oneill TRANSFER PROFESSOR Unavailable [phone] Encounter Details DateTypeDepartmentCare Team (Latest Contact Info)Lsoygmnjtjv34/12/2025Orders Only [facility] [address] [place] [address] Lorelei Rodriguez NP [address] Rodriguez [place] [id number] Social History Tobacco UseTypesPacks/DayYears UsedDateSmoking Tobacco: NeverSmokeless Tobacco: NeverAlcohol UseStandard Drinks/WeekCommentsNot Currently0 (1 standard drink = 0.6 oz pure alcohol)caffeine: 1 cups per dayPHQ-2AnswerDate RecordedPatient Health Questionnaire-2 [id number] and Gender InformationValueDate RecordedSex Assigned at BirthNot on fileLegal SexFemale 07/17/2022 8:27 PM EDTGender IdentityNot on fileSexual OrientationNot on file documented as of this encounter Plan of Treatment Not on file documented as of this encounter Visit Diagnoses Not on filedocumented in this encounter Additional Health Concerns AssessmentNoted TimePHQ-9 Depression Total Score: 605/11/2023 1:00 PM EDT documented as of this encounter Care Teams Team MemberRelationshipSpecialtyStart DateEnd Date Meagan Arreaga MD [address] [place], [place] [id number] PCP - GeneralFawyly Medicine09/20/22 Michelle Oneill NP [address] [place], [place] [id number] PCP - Ben WI05/05/23 Michelle Oneill NP [address] [place], [place] [id number] Nurse PractitionerFamily Medicine09/20/22documented as of this encounter
--- OUTSIDE RECORDS SUMMARY | 2025-04-21 13:48 | XMS_ITS | Clinical Summary ---
Author Organization [facility] Address [address] [place] [address] Care Team Providers Care Concrete Pile Driver Operator Name Role Phone Meagan Arreaga MD Primary Care Provider [phone] Michelle Oneill LIFE AGENT Unavailable Michelle Oneill LIFE AGENT Unavailable Allergies Active AllergyReactionsCriticalityNoted DateCommentsPenicillin GUnknown 10/15/2022Sulfamethoxazole-IoijggxwftjiJzzeizq09/13/2023 Medications MedicationSigDispense QuantityRefillsLast FilledStart DateEnd DateStatus cholecalciferol (Vitamin D-3) 25 MCG (1000 UT) tablet Take 25 mcg by mouth in the morning.07/21/2022ctive aspirin 81 MG EC tablet 1 (one) time each day at the same time.Active carvedilol (Coreg) 6.25 MG tablet TAKE 1 TABLET BY MOUTH TWICE DAILY (MORNING AND BEFORE BEDTIME)Active SV Iron 325 MG tablet Take 325 mg by mouth in the morning and 325 mg before bedtime.09/17/2022ctive acetaminophen (Tylenol) 500 MG tablet Take 500 mg by mouth every 6 (six) hours if needed.12/27/2021ctive b complex vitamins capsule Take 1 capsule by mouth in the morning.Active Ascorbic Acid (vitamin C) 250 MG tablet Take 250 mg by mouth in the morning.Active Apoaequorin (PREVAGEN PO) Take by mouthActive Multiple Vitamins-Minerals (PRESERVISION/LUTEIN PO) Take 1 tablet by mouth 1 (one) time each dayActive Multiple Vitamins-Minerals (Multivitamin Women 50+) tablet Take 1 tablet by mouth DailyActive escitalopram (Lexapro) 20 MG tablet Indications:Recurrent major depressive disorder, remission status unspecified Take 1 tablet by mouth once daily 90 tablet 4Active Additional Information Patient taking differently: 15 mg Oral 2 times daily, Morning, Bedtime, Reported on 11/23/2024 busPIRone (Buspar) 10 MG tablet Take 10 mg by mouth in the morning and 10 mg before bedtime.03/31/2024ctive amLODIPine (Norvasc) 5 MG tablet Indications:Primary hypertensionTake 1 tablet (5 mg) by mouth Daily 90 tablet 5Active triamcinolone (Kenalog) 0.1 % oral paste APPLY A FILM AFTER MEALS AND BEFORE BEDTIME FOR 7 DAYS4Active fluticasone (Flonase) 50 MCG/ACT nasal spray Indications:Seasonal allergic rhinitis due to other allergic triggerAdminister 1 spray into each nostril Daily Shake gently. Before first use, prime pump. After use, clean tip and replace cap. 16 g 5Active rosuvastatin (Crestor) 10 MG tablet Indications:Other hyperlipidemiaTake 1 tablet by mouth once daily 90 tablet 5Active lisinopril 10 MG tablet Indications:Primary hypertensionTAKE 1 TABLET BY MOUTH IN THE MORNING 30 tablet 5Active lisinopril 10 MG tablet Indications:Primary hypertensionTAKE 1 TABLET BY MOUTH IN THE MORNING 30 tablet Discontinued nitrofurantoin, macrocrystal-monohydrate, (Macrobid) 100 MG capsule Indications:Acute cystitis with hematuriaTake 1 capsule (100 mg) by mouth in the morning and 1 capsule (100 mg) before bedtime. Do all this for 5 days. 10 capsule Discontinued(Entered in error) Active Problems ProblemNoted DateDiagnosed DateElevated LFTs04/27/2024Iron deficiency anemia secondary to inadequate dietary iron wqldeu7104/27/2024SIRS (systemic inflammatory response syndrome)04/26/2024Infected wound03/26/2024Leg edema, left03/26/2024 Cognitive znspolk9007/31/2023Sequela of ischemic cerebral crglbyaepo86/28/2024 Anemia in other chronic diseases classified vbdvxipqk14/13/8054Mnjdpwd15/13/2023 Atherosclerosis of coronary vilfyk5110/15/2022arotid stenosis, bilateral 10/15/2022 21 hydroxylase nkqtolovhq32/13/2023hronic pain10/15/2022ognitive social or emotional deficit following nontraumatic subarachnoid hemorrhage 10/15/2022ongestive heart oyncecf3310/15/2022Other quegrrmtkbyqjx05/13/2023 Ischemic oymchusaysigck92/13/2023 Overview (11/28/2022): Has no current angina. 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 10/15/2022 Assessment & Plan (01/24/2025 2:12 PM EDT): Recurrent major depressive smyksbqs63/13/2023Seasonal allergic rhinitis 10/15/20226090Elcpphniaioxshja19/13/2023Vitamin D zlcyhebwjj82/13/2023Visual field cut10/14/20226465Rrrtqvanvbiubp08/12/5342Qkgzkpekx21/11/2019Moderate malnutrition ([facility])11/09/2018Recurrent major depressive disorder, in full remission 03/14/2018Mild dementia without behavioral disturbance, psychotic disturbance, mood disturbance, or anxiety, unspecified dementia type Overview (11/28/2022): She answers the first 18 questions on the MMSE, but she gets 0 for recall. Unable to recall events from last weekend. Gets confused in telling stories. She gets angry when others try to fill in the blanks. Assessment & Plan (01/24/2025 1:51 PM EDT): Resolved Problems ProblemNoted DateDiagnosed DateResolved DateAcute ST elevation myocardial infarction (STEMI)/0336Fooxqxe92/13/202305/ifficulty jfyijpk14/7933Sohymuddzfgifb48/13/202305/Multiple falls /Normal pressure zgojflxurveoz86/13/202307/ Bqklkutyscwim80Subdural Overview (11/28/2022): Memory issues have declined since this episode. 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 Hand pain, right/losed fracture of proximal end of ulna /ISTAP type 2 skin tear of right lower fqejcvocz75/02/2021 09/20/2023 Encounters DateTypeDepartmentCare ZnrpSfmylzkjdbk85/12/2025Orders Only [facility] [address] [facility] [place] [address] Lorelei Rodriguez NP 04/15/2025Patient Outreach [facility] [address] [place] [address] Meagan Ernandez RN 04/14/2025Patient Outreach [facility] [address] [place] [address] Meagan Ernandez RN 04/13/2025Patient Outreach [facility] [address] [place] [address] Christel Santizo LSW 03/30/2025bstract [facility] [address] [facility] [place] [address] Meagan Arreaga MD 03/28/2025Patient Outreach [facility] [address] [place] [address] Christel Santizo LSW 03/27/2025Refill [facility] [address] [facility] [place] [phone] Lorelei Rodriguez NP Primary mqlaksghqczq57/13/2025Patient Outreach [facility] [address] [place] [address] Christel Santizo, GREENS PLANTER 03/15/2025Orders Only [facility] [address] [facility] [place] [phone] Michelle Oneill NP Cataract of both eyes, unspecified cataract type (Primary Dx)03/15/2025Patient Outreach [facility] [address] [place] [address] Meagan Ernandez RN 03/14/2025Telephone [facility] [address] [place] [phone] Meagan Arreaga MD 02/28/2025Patient Outreach [facility] [address] [place] [address] Meagan Ernandez RN 02/25/2025Refill [facility] [address] [place] [phone] Lorelei Rodriguez NP Primary dxqpoxevepfj96/06/2025Patient Outreach [facility] [address] [place] [address] Christel Santizo, GREENS PLANTER 01/31/2025Patient Outreach [facility] [address] [place] [address] Meagan Ernandez RN 01/25/2025Refill [place] [address] [place] [phone] Lorelei Rodriguez NP Other zyoxvgxhvcxhhp07/22/2025 1:30 PM EDTOffice Visit [facility] [address] [facility] [place] [address] Michelle Oneill NP Need for vaccination (Primary Dx); Mild dementia without behavioral disturbance, psychotic disturbance, mood disturbance, or anxiety, unspecified dementia type (HCC); Unsteady gait; At high risk for falls; Primary myucofyxleth18/22/2025Patient Outreach [facility] [address] [place] [address] Meagan Ernandez RN 01/24/20259863Wqlbfx64/22/2025Refill [facility] [address] [place] [address] Lorelei Rodriguez NP Primary hypertensionfrom Last 3 Months Immunizations ImmunizationAdministration DatesNext DueInfluenza, High Dose Seasonal, Preservative Free01/24/2025,01/14/2024,01/30/2022,02/10/2019Influenza, High-dose Seasonal, Quadrivalent, Preservative Free02/18/2023,01/30/2022,02/15/2021, 02/14/2021,01/26/2020,02/09/2019Influenza, injectable, quadrivalent, preservative free12/31/2017Pfizer Purple Cap SARS-CoV-2 Yzhkcdafmcr54/05/2021, 06/22/2020,1Pneumococcal Conjugate PCV 13106/25/2019Pneumococcal Polysaccharide BTDS606606/17/20173547ZBVU-RTO-3 (COVID-19) vaccine, mRNA, spike protein, LNP, PF, 50 mcg/0.5 mL02/18/2023Td (adult), 5 Lf tetanus toxoid, preservative free, lrmwanlo29/29/8887Mwjq57/21/2022 Family History Medical HistoryRelationNameCommentsDementiaBrotherKidney failureFatherHeart diseaseMaternal GrandfatherLung diseaseMotherTuberculosisMotherDementiaSister RelationNameStatusCommentsBrotherDeceasedFatherDeceasedMaternal Grandfather DeceasedMotherDeceasedSisterDeceased Social History Tobacco UseTypesPacks/DayYears UsedDateSmoking Tobacco: NeverSmokeless Tobacco: Never Tobacco Cessation:Counseling Given: Not Answered Alcohol UseStandard Drinks/WeekCommentsNot Currently0 (1 standard drink = 0.6 oz pure alcohol)caffeine: 1 cups per dayPHQ-2AnswerDate RecordedPatient Health Questionnaire-2 Nymdk2294CommentsUnknownSex and Gender InformationValueDate RecordedSex Assigned at BirthNot on fileLegal SexFemale 07/17/2022 8:27 PM EDTGender IdentityNot on fileSexual OrientationNot on file Last Filed Vital Signs Vital SignReadingTime TakenCommentsBlood Kzmfflmu152/62001/24/2025 1:23 PM EDT Pxnif3191/20/2025 4:31 PM UDQJfoqciuokpr17.3 ??C (97.4 ??F)01/24/2025 1:23 PM EDTRespiratory Getu302906/11/2023 2:41 PM ESTOxygen Dxniytmfdb93%06/24/2024 4:31 PM ESTInhaled Oxygen Concentration--Xpxbrw63.6 kg (116 lb)01/24/2025 1:23 PM EDT Yygkhj518.9 cm (5' 1 )03/18/2024 12:38 PM ESTBody Mass Index21.9203/18/2024 12:38 PM EST Plan of Treatment Health MaintenanceDue DateLast DoneCommentsCOVID-19 Vaccine ( season) 5106/15/2023, 02/18/2023, 08/15/2021, Additional history exists Pneumococcal Vaccine: 65+ BxrscTjcppmick57/21/2020, 04/16/2018, 12/25/2011 Influenza TllihkvPgfhfnhej41/22/2025, 01/14/2024, 02/18/2023, [place] [address] Advance Directives TypeDate RecordedPatient RepresentativeExplanationAdvance Directives and Living Will12/20/2022 4:11 CP6123-30-21 Living WillPower of Attorney12/20/2022 4:11 PM 2022-06-12 Healthcare Power of International Freight Forwarder * DNR (Latest Code Status on File) Date ActivatedDate InactivatedComments12/20/2022 4:15 PM Care Teams Team MemberRelationshipSpecialtyStart DateEnd Date Meagan Arreaga MD [address] [place] [address] PCP - GeneralFamily Medicine09/20/22 Michelle Oneill NP [address] [place] [address] PCP - Ben EMERY05/05/23 Michelle Oniell NP [address] [place], [place] [phone] Nurse PractitionerFamily Medicine09/20/22
--- OUTSIDE RECORDS SUMMARY | 2025-04-21 13:48 | XMS_ITS | Patient Health Record ---
Author Organization [facility] Address [address] [place], [place] [address] Care Team Providers Care Spiral Winding Machine Helper Name Role Phone Hannah Cruz [phone] Allergies Allergen (clinical drug ingredient) Drug/Non Drug Allergy documented on EMR Reaction Allergy Type Onset Date Status PenicillinUnknownDrug AllergyActive Reason For Referral No Information Medications Medication SIG (Take, Route, Frequency, Duration) Notes Start Date End Date Status Rosuvastatin Calcium 10 MG Tablet Oral; Duration : 90 Days ActiveEscitalopram Oxalate 20 MG TabletOral; Duration: 90 DaysActiveCarvedilol 6.25 MG TabletOral; Duration: 90 DaysActiveLisinopril 10 MG TabletOral; Duration: 30 BkqyHpiwwmUskq41/29/2024Active Plan Of Treatment No Information Insurance Providers Payer Name Payer Address Payer Phone Subscriber Number Group Number Insured Name Patient Relationship to Insured Coverage Start Date Coverage End Date [employer] [facility] [address] [address] [place] [phone] [id number] K[address] Rico Self - patient is the insured 4
--- NOTE | 2025-04-21 14:27 | PM.WCHP ---
Wound Care H&P: HPI History of Present Illness Narrative: The patient is a pleasant 89-year-old female who presents for routine nail care and callus management. The patient has several toenails and calluses that are painful. The patient states she likes to go barefoot around the house. She does not have history of diabetes and has never smoked. Exam Narrative: Exam Narrative: Derm: Skin is diffusely dry. Toenails 1 through 10 are elongated, thickened, and mycotic. Hemosiderin staining noted on BLE. Hyperkeratotic tissue noted on the tips of the third toes bilaterally and beneath the 1st and 5th met heads bilaterally. Vascular: Left PT pulses nonpalpable. The right PT pulse is faintly palpable. DP pulses are 1/4 bilaterally. Capillary refill is brisk. Digital hair is absent. Neuro: Monofilament testing revealed absent sensation in 5/5 tested areas on each foot. Vibratory sensation is absent. Achilles deep tendon reflexes are absent bilaterally. MSK: Fat pad atrophy noted bilaterally. No gross deformity otherwise. Assessment and Plan Assessment and Plan (1) Tinea unguium: (2) Skin callus: (3) Diminished pulses in lower extremity: Plan The patient is a pleasant 89-year-old female with physical examination consistent with peripheral neuropathy. Routine nail and callus care performed. Follow up in 2-3 months or as needed. Acute Procedures Podiatry Nail Debridement Class B Findings Absent posterior tibial pulse: left Advanced trophic changes as evidenced by any three of the following: decreased hair growth, nail changes (thickening), pigmentary changes (discoloring) and skin texture (thin or shiny) Class C Findings Claudication: No Temperature changes: No Edema: Yes Nail debridement paresthesia (abnormal spontaneous sensations in the feet): No Burning: No Qualifies If: Qualifiers If:: A patient qualifies for nail debridement if they have: 1 class A finding (Q7) 2 class B findings (Q8) OR 1 class B & 2 class C findings in addition to a primary condition (Q9) Nail Procedure Nail Procedure Time out: Yes Nail procedure: other ((1) Nail debridement toes 1 through 10, (2) callus paring x 3) Number of affected nails: 10 Location (toes): left and right Procedure successful: Yes Patient tolerated procedure: well and no complications Additional comments: Toenails 1 through 10 were sharply debrided with nail nippers without incident. Calluses were pared on the tips of both 3rd toes and beneath the right 5th met ahead with a 15 blade without incident. She noted pain relief post procedure.
== END 2025-04-21 13:45 | disposition home or self-care (01) ==
LOC: WC 13:44
PROVIDERS: PCP Family Medicine; Visit Provider Physician Assistant
DX: B35.1 Tinea unguium (principal); L84 Corns and callosities; R09.89 Other specified symptoms and signs involving the circulatory and respiratory systems
CPT/HCPCS: 11721